=== PATIENT | female | born 1955 | race Caucasian/White ===

== ENCOUNTER 2017-09-13 05:11 | Inpatient (IN) | payer SELFPAY ==
[2017-09-13] MEDS ORDERED: IPRATROPIUM/ALBUTEROL 0.5-2.5 MG/3 ML AMPUL NEB ONE ×2 (05:15→11:00)
--- NOTE | 2017-09-13 05:17 | ER Document Report ---
ED General - General Stated Complaint: SHORTNESS OF BREATH Time Seen by Provider: 09/13/17 05:15 Mode of Arrival: Medic Information source: Patient, Emergency Med Personnel Cannot obtain history due to: Unstable vital signs Notes: 62-year-old female presents in respiratory distress, patient has a history of asthma, has been staying with family member who has cats. Patient has allergy to cats and began wheezing. EMS was called and noted to be satting 83% on room air patient was given breathing treatments 2 Solu-Medrol 125 and brought to the ED patient denies any fevers or chills - HPI Onset: Just prior to arrival Onset/Duration: Sudden Quality of pain: No pain Severity: Severe Pain Level: Denies Associated symptoms: Nonproductive cough, Shortness of breath Exacerbated by: Coughing, Other - cats Relieved by: Denies Similar symptoms previously: Yes Recently seen / treated by doctor: Yes Past Medical History - Social History Smoking Status: Never Smoker Cigarette use (# per day): No Chew tobacco use (# tins/day): No Smoking Education Provided: No Family History: Reviewed & Not Pertinent Review of Systems - Review of Systems Notes: REVIEW OF SYSTEMS: CONSTITUTIONAL : Denies fever, chills, or sweats. Denies recent illness. EENT: Denies eye, ear, throat, or mouth pain or symptoms. Denies nasal or sinus congestion or discharge. Denies throat, tongue, or mouth swelling or difficulty swallowing. CARDIOVASCULAR: Denies chest pain. Denies palpitations or racing or irregular heart beat. Denies ankle edema. RESPIRATORY: Admits to difficulty breathing shortness of breath GASTROINTESTINAL: Denies abdominal pain or distention. Denies nausea, vomiting , or diarrhea. Denies blood in vomitus, stools, or per rectum. Denies black, tarry stools. Denies constipation. GENITOURINARY: Denies difficulty urinating, painful urination, burning, frequency, blood in urine, or discharge. FEMALE GENITOURINARY: Denies vaginal bleeding, heavy or abnormal periods, irregular periods. Denies vaginal discharge or odor. MUSCULOSKELETAL: Denies back or neck pain or stiffness. Denies joint pain or swelling. SKIN: Denies rash, lesions or sores. HEMATOLOGIC : Denies easy bruising or bleeding. LYMPHATIC: Denies swollen, enlarged glands. NEUROLOGICAL: Denies confusion or altered mental status. Denies passing out or loss of consciousness. Denies dizziness or lightheadedness. Denies headache. Denies weakness or paralysis or loss of use of either side. Denies problems with gait or speech. Denies sensory loss, numbness, or tingling. Denies seizures. PSYCHIATRIC: Denies anxiety or stress. Denies depression, suicidal ideation, or homicidal ideation. ALL OTHER SYSTEMS REVIEWED AND NEGATIVE. PHYSICAL EXAMINATION: GENERAL: Well-appearing, well-nourished and in significant respiratory distress HEAD: Atraumatic, normocephalic. EYES: Pupils equal round and reactive to light, extraocular movements intact, conjunctiva are normal. ENT: Nares patent, oropharynx clear without exudates. Moist mucous membranes. NECK: Normal range of motion, supple without lymphadenopathy LUNGS: Decreased breath sounds all throughout supraclavicular retractions HEART: Tachycardic ABDOMEN: Soft, nontender, nondistended abdomen. No guarding, no rebound. No masses appreciated. Female : deferred Musculoskeletal: Normal range of motion, no pitting or edema. No cyanosis. NEUROLOGICAL: Cranial nerves grossly intact. Normal speech, normal gait. Normal sensory, motor exams PSYCH: Normal mood, normal affect. SKIN: Warm, Dry, normal turgor, no rashes or lesions noted. Dictation was performed using [employer] voice recognition software Physical Exam - Vital signs Vitals: Resp Pulse Ox 31 H 88 L 09/13/17 05:14 09/13/17 05:14 Course - Re-evaluation Re-evalutation: 09/13/17 05:17 For the DuoNeb magnesium have been ordered respiratory has been called for BiPAP 09/13/17 06:07 Patient's O2 sat when taken off oxygen goes down to 80% still at rest, BiPAP was placed she has been satting well since retractions have resolved, chest x- ray is more consistent with reactive airway disease which I believe is secondary to the asthma exacerbation, she has never been intubated before and is resting comfortably at this time after magnesium had been given. I did speak with hospitalist and will admit to their service - Vital Signs Vital signs: Temp Pulse Resp BP Pulse Ox 143 H 31 H 129/71 H 97 09/13/17 05:15 09/13/17 05:14 09/13/17 05:35 09/13/17 05:35 - Laboratory Result Diagrams: 09/13/17 05:20 09/13/17 05:20 Laboratory results interpreted by me: 09/13/17 05:20 WBC 11.4 H RDW 14.6 H - Diagnostic Test Radiology reviewed: Image reviewed, Reports reviewed - Reactive airway - EKG Interpretation by Me EKG shows normal: Sinus rhythm, [place], Intervals, QRS Complexes Critical Care Note - Critical Care Note Total time excluding time spent on procedures (mins): 37 Comments: 37 minutes of critical care time spent in direct contact evaluating and reevaluating the patient, treating symptoms, reviewing labs and studies and speaking with family and consultants excluding any procedures Discharge - Discharge Clinical Impression: Tachycardia, Respiratory distress Exacerbation of asthma Qualifiers: Asthma severity: severe Asthma persistence: persistent Qualified Code(s): J45.51 - Severe persistent asthma with (acute) exacerbation Condition: Fair Disposition: ADMITTED INPATIENT Admitting Provider: Hospitalist Unit Admitted: [facility]
[2017-09-13] MEDS: MAGNESIUM SULFATE/D5W 1 GM/100 ML RTUPB IV SCH (05:20)
[2017-09-13 05:48] LABS: ABSOLUTE BASOPHILS # (AUTO) 0.1 10^3/uL (0.0-0.2); ABSOLUTE EOSINOPHILS # (AUTO) 0.1 10^3/uL (0.0-0.6); ABSOLUTE LYMPHOCYTES (AUTO) 2.6 10^3/uL (0.5-4.7); ABSOLUTE MONOCYTES (AUTO) 0.7 10^3/uL (0.1-1.4); BASOPHILS % (AUTO) 0.7 % (0-2); EOSINOPHILS % (AUTO) 0.9 % (0-6); HEMATOCRIT 37.3 % (36.0-47.0); HEMOGLOBIN 12.2 g/dL (12.0-15.5); LYMPHOCYTES % (AUTO) 22.5 % (13-45); MEAN CORPUSCULAR HEMOGLOBIN 28.9 pg (27.0-33.4); MEAN CORPUSCULAR HGB CONC 32.7 g/dL (32.0-36.0); MEAN CORPUSCULAR VOLUME 89 fl (80-97); MONOCYTES % (AUTO) 5.7 % (3-13); PLATELET COUNT 420 10^3/uL (150-450); RED BLOOD COUNT 4.21 10^6/uL (3.72-5.28); RED CELL DISTRIBUTION WIDTH 14.6 % (11.5-14.0); SEGMENTED NEUTROPHILS % (AUTO) 70.2 % (42-78); TOTAL CELLS COUNTED % (AUTO) 100 %; WHITE BLOOD COUNT 11.4 10^3/uL (4.0-10.5)
--- NOTE | 2017-09-13 05:52 | RADIOLOGY REPORT (SQ) ---
EXAM DESCRIPTION: CHEST SINGLE VIEW CLINICAL HISTORY: resp distress, asthma exacerbation COMPARISON: None. FINDINGS: Single frontal view of the chest. Atherosclerotic calcification of the aortic arch. Heart is not enlarged. Diffuse bilateral interstitial opacities and peribronchial interstitial thickening. No pneumothorax or pleural effusion. No displaced rib fractures identified. Upper abdominal soft tissues are unremarkable. IMPRESSION: 1. Bronchial interstitial thickening with bilateral interstitial opacities. This could be seen with reactive airways disease however acute interstitial edema or interstitial pneumonia could produce a similar appearance.
[2017-09-13 06:10] LABS: ALANINE AMINOTRANSFERASE 26 U/L (9-52); ALKALINE PHOSPHATASE 107 U/L (38-126); ANION GAP 11 (5-19); ASPARTATE AMINO TRANSFERASE 18 U/L (14-36); BILIRUBIN,DIRECT 0.4 mg/dL (0.0-0.4); BILIRUBIN,TOTAL 0.4 mg/dL (0.2-1.3); BLOOD UREA NITROGEN 15 mg/dL (7-20); CALCIUM 9.4 mg/dL (8.4-10.2); CARBON DIOXIDE 24 mmol/L (22-30); CHLORIDE 106 mmol/L (98-107); CREATINE KINASE 152 U/L (30-135); GLUCOSE 316 mg/dL (75-110); POTASSIUM 4.5 mmol/L (3.6-5.0); TOTAL PROTEIN 6.8 g/dL (6.3-8.2)
[2017-09-13 06:15] LABS: CREATINE KINASE MB 1.68 ng/mL (<4.55); NT PRO BNP 750 pg/mL (5-900)
[2017-09-13 06:24] LABS: TROPONIN I < 0.012 ng/mL
[2017-09-13] MEDS ORDERED: DEXTROSE 50%-WATER 25 GM/50 ML DISP.SYRIN IV PRN ×2 (07:22)
[2017-09-13] MEDS ORDERED: ACETAMINOPHEN 325 MG TABLET PO PRN (07:22)
[2017-09-13] MEDS ORDERED: IPRATROPIUM/ALBUTEROL 0.5-2.5 MG/3 ML AMPUL NEB PRN (07:22)
[2017-09-13] MEDS ORDERED: DEXTROSE 40% GEL 15 GM TUBE PO PRN ×2 (07:22)
[2017-09-13] MEDS ORDERED: GLUCAGON,HUMAN RECOMB 1 MG INJ IM PRN (07:22)
[2017-09-13 07:23] LABS: APPEARANCE,URINE SLIGHTLY-CLOUDY; BILIRUBIN,URINE NEGATIVE (NEGATIVE); COLOR,URINE YELLOW; GLUCOSE, URINE >=500 mg/dL (NEGATIVE); KETONES,URINE NEGATIVE (NEGATIVE); LEUKOCYTE ESTERASE,URINE NEGATIVE (NEGATIVE); NITRITE,URINE NEGATIVE (NEGATIVE); PROTEIN,URINE 30 mg/dL (NEGATIVE); URINE SPECIFIC GRAVITY 1.018; UROBILINOGEN,URINE NEGATIVE mg/dL (<2.0)
[2017-09-13] MEDS ORDERED: IPRATROPIUM/ALBUTEROL 0.5-2.5 MG/3 ML AMPUL NEB SCH (08:00)
[2017-09-13] MEDS ORDERED: CHLORPHENIRAMINE MALEATE 4 MG TABLET PO ONE (10:00)
[2017-09-13] MEDS ORDERED: HYDROCHLOROTHIAZIDE 25 MG TABLET PO ONE (10:00)
[2017-09-13] MEDS ORDERED: (PENDING PHARMACY ID) (Olmesartan Medoxomil [Benicar] 20 MG) PO SCH (10:00)
[2017-09-13] MEDS ORDERED: (PENDING PHARMACY ID) (Diclofenac Sodium [Voltaren] 75 MG) PO SCH (10:00)
[2017-09-13] MEDS ORDERED: NICOTINE 7 MG/24 HR PATCH.TD24 TD PRN (10:06)
[2017-09-13] MEDS: LEVOFLOXACIN 750 MG/D5W RTU 750 MG/150 ML RTUPB IV SCH (10:43)
[2017-09-13] MEDS: FLUTICASONE NASAL SPRAY 50 MCG/SPRY 120 SPRAY/16 GM NASL SCH ×2 (10:44→22:21)
--- NOTE | 2017-09-13 10:47 | EKG REPORT ---
SEVERITY:- ABNORMAL ECG - SINUS TACHYCARDIA MULTIFORM VENTRICULAR PREMATURE COMPLEXES NONSPECIFIC T ABNORMALITIES, LATERAL LEADS : Confirmed by: Kunal Rosa 13-Sep-2017 10:46:25
[2017-09-13] MEDS: INSULIN LISPRO 100 UNIT/ML 3 ML VIAL SUBCUT PRN ×2 (11:45→16:34)
[2017-09-13] MEDS: HEPARIN SOD (PORCINE) 5,000 UNIT/ML 1 ML SYRINGE SUBCUT SCH ×2 (14:14→22:20)
[2017-09-13] MEDS: IPRATROPIUM/ALBUTEROL 0.5-2.5 MG/3 ML AMPUL NEB SCH ×2 (14:32→19:40)
[2017-09-13] MEDS ORDERED: CHLORPHENIRAMINE MALEATE 4 MG TABLET PO PRN (15:45)
--- NOTE | 2017-09-13 18:37 | PDOC H&P ---
History of Present Illness Admission Date/PCP: 09/13/17 06:29 Patient complains of: Shortness of breath and cough History of Present Illness: KHUSHBOO ELIAS is a 62 year old female with past medical history of diabetes, hypertension, COPD and tobacco dependence. Patient complains of several days of rhinorrhea, shortness of breath, wheeze nonproductive cough. Symptoms not significantly improved by outpatient medications in the emergency room she is found to be hypoxic in the 80s and tachycardic in the 140s she is referred to the hospitalist for observation. She denies chest pain nausea vomiting palpitations. Denies fever or any new medications. She does have mild leukocytosis but an unremarkable chest x-ray. Past Medical History Cardiac Medical History: Reports: Hypertension Pulmonary Medical History: Reports: Chronic Obstructive Pulmonary Disease (COPD) Endocrine Medical History: Reports: Diabetes Mellitus Type 1 Social History Information Source: Patient Lives with: Alone Smoking Status: Current Every Day Smoker Frequency of Alcohol Use: Rare - Advance Directive Resuscitation Status: Full Code Family History Family History: CAD, COPD, Other - Alcoholism Parental Family History Reviewed: Yes Children Family History Reviewed: Yes Sibling(s) Family History Reviewed.: Yes Medication/Allergy Home Medications: Albuterol Sulfate [Proventil Hfa] 2 puff IH Q12 09/13/17 Diclofenac Sodium [Voltaren] 75 mg PO BID 09/13/17 Fluticasone/Salmeterol [Advair 250-50 Diskus 14 Dose/Diskus] 1 puff IH Q12 09/13 Hydrochlorothiazide [Hydrodiuril 25 mg Tablet] 25 mg PO QAM 09/13/17 Insulin Aspart [Novolog Flexpen] 0 unit SUBCUT .SLD SCALE 09/13/17 Insulin Detemir [Levemir Flextouch] 95 unit SQ QHS 09/13/17 Olmesartan Medoxomil [Benicar] 20 mg PO DAILY 09/13/17 Allergies/Adverse Reactions: No Known Allergies Allergy (Unverified 09/13/17 06:35) Review of Systems Constitutional: PRESENT: as per HPI, fatigue, headache(s), weakness Eyes: ABSENT: visual disturbances Ears: ABSENT: hearing changes Nose, Mouth, and Throat: PRESENT: as per HPI, other - Maxillary sinus pain and rhinorrhea Cardiovascular: ABSENT: chest pain, dyspnea on exertion, edema, orthropnea, palpitations Respiratory: PRESENT: as per HPI, cough, dyspnea. ABSENT: hemoptysis, sputum Gastrointestinal: ABSENT: abdominal pain, constipation, diarrhea, hematemesis, hematochezia, nausea, vomiting Genitourinary: ABSENT: dysuria, hematuria Musculoskeletal: ABSENT: joint swelling Integumentary: ABSENT: rash, wounds Neurological: ABSENT: abnormal gait, abnormal speech, confusion, dizziness, focal weakness, syncope Psychiatric: ABSENT: anxiety, depression, homidical ideation, suicidal ideation Endocrine: ABSENT: cold intolerance, heat intolerance, polydipsia, polyuria Hematologic/Lymphatic: ABSENT: easy bleeding, easy bruising Physical Exam Vital Signs: Temp Pulse Resp BP Pulse Ox 98.6 F 115 H 15 155/76 H 97 09/13/17 09:01 09/13/17 14:32 09/13/17 17:01 09/13/17 17:01 09/13/17 17:01 General appearance: PRESENT: cooperative, disheveled, mild distress Head exam: PRESENT: atraumatic, normocephalic Eye exam: PRESENT: conjunctiva pink, EOMI, PERRLA. ABSENT: scleral icterus Ear exam: PRESENT: normal external ear exam Mouth exam: PRESENT: moist, tongue midline Neck exam: ABSENT: carotid bruit, JVD, lymphadenopathy, thyromegaly Respiratory exam: PRESENT: crackles, prolonged expiratory phas, rales, retraction, symmetrical, tachypnea. ABSENT: rhonchi, wheezes Cardiovascular exam: PRESENT: +S1, +S2, tachycardia Pulses: PRESENT: normal dorsalis pedis pul Vascular exam: PRESENT: normal capillary refill GI/Abdominal exam: PRESENT: normal bowel sounds, soft. ABSENT: distended, guarding, mass, organolmegaly, rebound, tenderness Rectal exam: PRESENT: deferred Extremities exam: PRESENT: full ROM. ABSENT: calf tenderness, clubbing, pedal edema Neurological exam: PRESENT: alert, awake, oriented to person, oriented to place , oriented to time, oriented to situation, CN II-XII grossly intact. ABSENT: motor sensory deficit Psychiatric exam: PRESENT: appropriate affect, normal mood. ABSENT: homicidal ideation, suicidal ideation Skin exam: PRESENT: dry, intact, warm. ABSENT: cyanosis, rash Results Impressions: Chest X-Ray 09/13/17 05:15 IMPRESSION: 1. Bronchial interstitial thickening with bilateral interstitial opacities. This could be seen with reactive airways disease however acute interstitial edema or interstitial pneumonia could produce a similar appearance. Assessment & Plan - Diagnosis (1) Asthma exacerbation in COPD Is this a current diagnosis for this admission?: Yes Plan: Complicated by allergic sinusitis, acute bronchitis and tobacco. Albuterol and Atrovent, flutter valve, incentive spirometry and tobacco avoidance (2) Acute bronchitis Is this a current diagnosis for this admission?: Yes Plan: Trial empiric antibiotics. Consider prednisone. (3) Allergic sinusitis Is this a current diagnosis for this admission?: Yes Plan: Chlorpheniramine and Flonase (4) Tobacco abuse Is this a current diagnosis for this admission?: Yes Plan: Tobacco Dependence patient received tobacco cessation counseling and offered nicotine replacement options (5) Tachycardia Is this a current diagnosis for this admission?: Yes Plan: Trial diltiazem during acute flare given high risk of conversion to A. fib. - Time Time Spent: 50 to 70 Minutes
[2017-09-13] MEDS: DICLOFENAC SODIUM 25 MG TABLET.DR PO SCH (22:16)
[2017-09-13] MEDS: DILTIAZEM HCL 120 MG CAP.SR.24H PO SCH (22:17)
[2017-09-13] MEDS ORDERED: INFLUENZA ADLT QUAD (36MOS+) 2017-18 VAC 0.5 ML SYR IM PRN (23:11)
[2017-09-13] MEDS ORDERED: INSULIN DETEMIR 100 UNIT/ML 3 ML PEN SUBCUT ONE (23:45)
[2017-09-14] MEDS: INSULIN LISPRO 100 UNIT/ML 3 ML VIAL SUBCUT PRN ×4 (00:28→18:12)
[2017-09-14] MEDS: GUAIFENESIN SYRP 200 MG/10 ML UDC PO PRN (00:28)
[2017-09-14] MEDS: METHYLPREDNISOLONE INJ 40 MG/1 ML SDV IV SCH ×3 (00:28→22:16)
[2017-09-14] MEDS ORDERED: INSULIN DETEMIR 100 UNIT/ML 3 ML PEN SUBCUT ONE (01:01)
[2017-09-14] MEDS: IPRATROPIUM/ALBUTEROL 0.5-2.5 MG/3 ML AMPUL NEB SCH ×4 (02:09→19:57)
[2017-09-14] MEDS: DILTIAZEM HCL 120 MG CAP.SR.24H PO SCH ×2 (05:19→18:12)
[2017-09-14] MEDS: HEPARIN SOD (PORCINE) 5,000 UNIT/ML 1 ML SYRINGE SUBCUT SCH ×3 (05:19→22:16)
[2017-09-14 05:53] LABS: ABSOLUTE LYMPHOCYTES (AUTO) 0.9 10^3/uL (0.5-4.7); ABSOLUTE MONOCYTES (AUTO) 0.2 10^3/uL (0.1-1.4); BASOPHILS % (AUTO) 0.2 % (0-2); HEMATOCRIT 35.1 % (36.0-47.0); HEMOGLOBIN 11.5 g/dL (12.0-15.5); LYMPHOCYTES % (AUTO) 6.5 % (13-45); MEAN CORPUSCULAR HEMOGLOBIN 28.7 pg (27.0-33.4); MEAN CORPUSCULAR HGB CONC 32.7 g/dL (32.0-36.0); MEAN CORPUSCULAR VOLUME 88 fl (80-97); MONOCYTES % (AUTO) 1.3 % (3-13); PLATELET COUNT 388 10^3/uL (150-450); RED CELL DISTRIBUTION WIDTH 14.7 % (11.5-14.0); TOTAL CELLS COUNTED % (AUTO) 100 %; WHITE BLOOD COUNT 14.1 10^3/uL (4.0-10.5)
--- NOTE | 2017-09-14 06:42 | Physician Advisory Note ---
Physician Advisor ProgressNote .: Pursuant to the plan for [facility], I have reviewed the medical record for this patient. Physician Advisor Statement: Please consider documenting, if you agree: 1. "Acute Hypoxemic Respiratory FAilure" - H&P already nicely documents the O2 sats in 80s , retractions, etc. Needed Bipap in ED. Status: Pt w/persistent tachycardia, recurrent tachypnea throughout the day . Last nursing assessment indicates continued HALL, wheezing. If attending agrees that this pt is not yet safe for d/c today, appropriate to change status to Inpatient. Thanks! CK
[2017-09-14] MEDS: HYDROCHLOROTHIAZIDE 25 MG TABLET PO SCH (08:11)
[2017-09-14] MEDS ORDERED: METHYLPREDNISOLONE INJ 125 MG/2 ML SDV IV SCH ×2 (10:00→22:00)
[2017-09-14] MEDS: DICLOFENAC SODIUM 25 MG TABLET.DR PO SCH ×2 (11:03→22:16)
[2017-09-14] MEDS: FLUTICASONE NASAL SPRAY 50 MCG/SPRY 120 SPRAY/16 GM NASL SCH ×2 (11:03→22:16)
[2017-09-14] MEDS: LEVOFLOXACIN 750 MG/D5W RTU 750 MG/150 ML RTUPB IV SCH (11:04)
[2017-09-14] MEDS: LOSARTAN POTASSIUM 50 MG TABLET PO SCH (11:04)
[2017-09-14] MEDS: NICOTINE 14 MG/24 HR PATCH.TD24 TD SCH (11:05)
--- NOTE | 2017-09-14 16:28 | PDOC PROGRESS REPORT ---
Subjective Progress Note for:: 09/14/17 Subjective:: Patient is a 62-year-old female with a past medical history of diabetes, hypertension, COPD and tobacco dependence who was admitted on 09/13/17 for acute respiratory failure with hypoxia secondary to COPD exacerbation. Patient seen on morning rounds. She is found sitting up to the edge of her bed on supplemental oxygen at 2 L/min having just finished her breakfast. She is not home O2 dependent. She reports that her breathing has improved significantly and she no longer feels dyspneic while at rest. However, she does become significantly short of breath when ambulatory 10-12 feet to the restroom and takes several minutes to recover after returning to the bed. She also reports increased sputum production today. She denies fever, chills, chest pain, palpitations, orthopnea, abdominal pain, nausea vomiting diarrhea. She does request the addition of a nicotine patch and to speak with social security specialist. Otherwise, she has no new questions or concerns. Reason For Visit: ACUTE RESPIRATORY FAILURE W/HYPOXIA, COPD Physical Exam Vital Signs: Temp Pulse Resp BP Pulse Ox 98.9 F 108 H 18 171/76 H 96 09/14/17 10:59 09/14/17 14:25 09/14/17 14:25 09/14/17 10:59 09/14/17 14:25 General appearance: PRESENT: no acute distress, well-developed, well-nourished, other - Overweight Head exam: PRESENT: atraumatic, normocephalic Eye exam: PRESENT: conjunctiva pink, EOMI, PERRLA. ABSENT: scleral icterus Ear exam: PRESENT: normal external ear exam Mouth exam: PRESENT: moist, tongue midline Teeth exam: PRESENT: poor dentation Neck exam: ABSENT: carotid bruit, JVD, lymphadenopathy, thyromegaly Respiratory exam: PRESENT: prolonged expiratory phas, rhonchi, symmetrical, unlabored, wheezes - Expiratory wheezing, especially to the left lower lobe, other - Omental oxygen at 2 L/min. ABSENT: crackles, rales Cardiovascular exam: PRESENT: RRR, +S1, +S2. ABSENT: diastolic murmur, rubs, systolic murmur, tachycardia Pulses: PRESENT: normal dorsalis pedis pul Vascular exam: PRESENT: normal capillary refill GI/Abdominal exam: PRESENT: normal bowel sounds, soft. ABSENT: distended, guarding, mass, organolmegaly, rebound, tenderness Rectal exam: PRESENT: deferred Extremities exam: PRESENT: full ROM. ABSENT: calf tenderness, clubbing, pedal edema Neurological exam: PRESENT: alert, awake, oriented to person, oriented to place , oriented to time, oriented to situation, CN II-XII grossly intact. ABSENT: motor sensory deficit Psychiatric exam: PRESENT: agitated, appropriate affect, normal mood. ABSENT: homicidal ideation, suicidal ideation Skin exam: PRESENT: dry, intact, warm. ABSENT: cyanosis, rash Results Impressions: Chest X-Ray 09/13/17 05:15 IMPRESSION: 1. Bronchial interstitial thickening with bilateral interstitial opacities. This could be seen with reactive airways disease however acute interstitial edema or interstitial pneumonia could produce a similar appearance. Assessment & Plan - Diagnosis (1) Acute respiratory failure with hypoxia Is this a current diagnosis for this admission?: Yes Plan: Slight improvement. Secondary to COPD exacerbation; the patient was noted to be hypoxic and the 80s and tachycardic at 140 upon arrival to the emergency department. The patient is admitted to the telemetry floor. Supplemental oxygen as needed to maintain oxygen saturations greater than 88% Continue scheduled and as needed nebulizer treatments. Continue chlorpheniramine every 6 hours as needed We will resume Mucinex twice daily. We will continue IV Solu-Medrol 40 mg every 8 hours. Incentive spirometry and flutter valve to bedside. (2) COPD exacerbation Plan: As above. (3) Acute bronchitis Is this a current diagnosis for this admission?: Yes Plan: Blood cultures: No growth in 24 hours. Plan as above. The patient has empirically been placed on Levaquin. (4) Allergic sinusitis Is this a current diagnosis for this admission?: Yes Plan: Continue Flonase. Continue chlorphentermine as needed. (5) Tachycardia Is this a current diagnosis for this admission?: Yes Plan: Likely secondary to acute respiratory failure with hypoxia. The patient has been placed on diltiazem with subsequent decrease in heart rate , however, the patient does continue to be mildly tachycardic averaging 100-110. (6) Diabetes Qualifiers: Diabetes mellitus type: type 2 Diabetes mellitus retirement insulin use: with 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 use Is this a current diagnosis for this admission?: Yes Plan: Consistent carb diet. Accu-Cheks before meals and at bedtime with Humalog for sliding scale coverage. We will continue Levemir 52 units nightly. Of note, this is a decrease from the patient's reported use of 95 units nightly. This raises concern of dietary or medication noncompliance leading to her the necessary dosage. We will ask the music educator and registered dietitian to meet with the patient. (7) Tobacco abuse Is this a current diagnosis for this admission?: Yes Plan: Smoking cessation is strongly encouraged. She is provided a NicoDerm patch. - Time Time Spent with patient: 35 or more minutes Medications reviewed and adjusted accordingly: Yes Anticipated discharge: Home - Inpatient Certification Based on my medical assessment, after consideration of the patient's comorbidities, presenting symptoms, or acuity I expect that the services needed warrant INPATIENT care.: Yes I certify that my determination is in accordance with my understanding of Medicare's requirements for reasonable and necessary INPATIENT services [42 CFR 412.3e].: Yes Medical Necessity: Failure to Improve With Outpatient Therapy, Need Close Monitoring Due to Risk of Patient Decompensation, Need For Continuous Telemetry Monitoring, Need for Nebulizer Therapy and Monitoring of Response
[2017-09-14] MEDS ORDERED: INSULIN DETEMIR 100 UNIT/ML 3 ML PEN SUBCUT SCH (22:00)
[2017-09-14] MEDS: GUAIFENESIN 600 MG TABLET.SA PO SCH (22:16)
[2017-09-14] MEDS: INSULIN DETEMIR 100 UNIT/ML 3 ML PEN SUBCUT SCH (22:17)
[2017-09-15] MEDS: IPRATROPIUM/ALBUTEROL 0.5-2.5 MG/3 ML AMPUL NEB SCH ×4 (01:19→19:49)
[2017-09-15 05:09] LABS: HEMATOCRIT 34.3 % (36.0-47.0); HEMOGLOBIN 11.3 g/dL (12.0-15.5); MEAN CORPUSCULAR HEMOGLOBIN 28.9 pg (27.0-33.4); MEAN CORPUSCULAR VOLUME 88 fl (80-97); PLATELET COUNT 395 10^3/uL (150-450); RED BLOOD COUNT 3.92 10^6/uL (3.72-5.28); RED CELL DISTRIBUTION WIDTH 14.7 % (11.5-14.0)
[2017-09-15 05:32] LABS: ANION GAP 11 (5-19); BLOOD UREA NITROGEN 38 mg/dL (7-20); CALCIUM 10.3 mg/dL (8.4-10.2); CARBON DIOXIDE 25 mmol/L (22-30); CHLORIDE 97 mmol/L (98-107); GLUCOSE 353 mg/dL (75-110); POTASSIUM 4.7 mmol/L (3.6-5.0); SODIUM 132.8 mmol/L (137-145)
[2017-09-15] MEDS: HEPARIN SOD (PORCINE) 5,000 UNIT/ML 1 ML SYRINGE SUBCUT SCH ×3 (06:21→22:24)
[2017-09-15] MEDS: DILTIAZEM HCL 120 MG CAP.SR.24H PO SCH ×2 (06:21→17:27)
[2017-09-15] MEDS: METHYLPREDNISOLONE INJ 40 MG/1 ML SDV IV SCH ×2 (06:21→13:13)
[2017-09-15] MEDS: INSULIN LISPRO 100 UNIT/ML 3 ML VIAL SUBCUT PRN ×4 (06:52→22:23)
[2017-09-15] MEDS: HYDROCHLOROTHIAZIDE 25 MG TABLET PO SCH (08:23)
[2017-09-15] MEDS: NICOTINE 14 MG/24 HR PATCH.TD24 TD SCH (09:58)
[2017-09-15] MEDS: DICLOFENAC SODIUM 25 MG TABLET.DR PO SCH ×2 (09:58→22:18)
[2017-09-15] MEDS: LOSARTAN POTASSIUM 50 MG TABLET PO SCH (09:58)
[2017-09-15] MEDS: GUAIFENESIN 600 MG TABLET.SA PO SCH ×2 (09:58→22:20)
[2017-09-15] MEDS: FLUTICASONE NASAL SPRAY 50 MCG/SPRY 120 SPRAY/16 GM NASL SCH ×2 (09:58→22:18)
[2017-09-15] MEDS: LEVOFLOXACIN 750 MG/D5W RTU 750 MG/150 ML RTUPB IV SCH (09:58)
[2017-09-15] MEDS: GUAIFENESIN SYRP 200 MG/10 ML UDC PO PRN (13:13)
--- NOTE | 2017-09-15 14:00 | PDOC PROGRESS REPORT ---
Subjective Progress Note for:: 09/15/17 Subjective:: Patient is a 62-year-old female with a past medical history of diabetes, hypertension, COPD and tobacco dependence who was admitted on 09/13/17 for acute respiratory failure with hypoxia secondary to COPD exacerbation. Patient seen on rounds. She is found sitting up to the edge of her bed on room air having just finished her lunch. She is not home O2 dependent. She reports that her breathing has improved significantly and she no longer feels dyspneic while at rest. She has been ambulatory in the hallway without issue. She does complain of a productive cough as well as chest wall pain with coughing and deep breathing. She denies fever, chills, chest pain, palpitations, orthopnea, abdominal pain, nausea vomiting diarrhea. She has no new questions or concerns. Reason For Visit: ACUTE RESPIRATORY FAILURE W/HYPOXIA, COPD Physical Exam Vital Signs: Temp Pulse Resp BP Pulse Ox 98.0 F 96 18 112/62 98 09/15/17 11:38 09/15/17 11:38 09/15/17 11:38 09/15/17 11:38 09/15/17 11:38 Intake & Output 09/14/17 09/15/17 09/16/17 06:59 06:59 06:59 Intake Total 2506 Output Total 5400 Balance -2894 Weight 73.2 kg General appearance: PRESENT: no acute distress, well-developed, well-nourished, other - Overweight Head exam: PRESENT: atraumatic, normocephalic Eye exam: PRESENT: conjunctiva pink, EOMI, PERRLA. ABSENT: scleral icterus Ear exam: PRESENT: normal external ear exam Mouth exam: PRESENT: moist, tongue midline Neck exam: ABSENT: carotid bruit, JVD, lymphadenopathy, thyromegaly Respiratory exam: PRESENT: clear to auscultation becca, symmetrical, unlabored. ABSENT: rales, rhonchi, wheezes Cardiovascular exam: PRESENT: RRR, +S1, +S2. ABSENT: diastolic murmur, rubs, systolic murmur Pulses: PRESENT: normal dorsalis pedis pul Vascular exam: PRESENT: normal capillary refill GI/Abdominal exam: PRESENT: normal bowel sounds, soft. ABSENT: distended, guarding, mass, organolmegaly, rebound, tenderness Rectal exam: PRESENT: deferred Extremities exam: PRESENT: full ROM. ABSENT: calf tenderness, clubbing, pedal edema Neurological exam: PRESENT: alert, awake, oriented to person, oriented to place , oriented to time, oriented to situation, CN II-XII grossly intact. ABSENT: motor sensory deficit Psychiatric exam: PRESENT: appropriate affect, normal mood. ABSENT: homicidal ideation, suicidal ideation Skin exam: PRESENT: dry, intact, warm. ABSENT: cyanosis, rash Results Laboratory Results: 09/15/17 04:36 09/15/17 04:36 09/15/17 09/15/17 04:36 04:36 WBC 17.0 H RBC 3.92 Hgb 11.3 L Hct 34.3 L MCV 88 MCH 28.9 MCHC 33.0 RDW 14.7 H Plt Count 395 Sodium 132.8 L Potassium 4.7 Chloride 97 L Carbon Dioxide 25 Anion Gap 11 BUN 38 H Creatinine 0.97 Est GFR ( Amer) > 60 Est GFR (Non-Af Amer) 59 L Glucose 353 H Calcium 10.3 H Impressions: Chest X-Ray 09/13/17 05:15 IMPRESSION: 1. Bronchial interstitial thickening with bilateral interstitial opacities. This could be seen with reactive airways disease however acute interstitial edema or interstitial pneumonia could produce a similar appearance. Assessment & Plan - Diagnosis (1) Acute respiratory failure with hypoxia Is this a current diagnosis for this admission?: Yes Plan: Much improved. Secondary to COPD exacerbation; the patient is now maintaining oxygen saturations while on room air. The patient is admitted to the telemetry floor. Supplemental oxygen as needed to maintain oxygen saturations greater than 88% Continue scheduled and as needed nebulizer treatments. Continue chlorpheniramine every 6 hours as needed We will resume Mucinex twice daily. We will transition to prednisone. Incentive spirometry and flutter valve to bedside. Anticipate discharge tomorrow morning if patient tolerates transition to oral medications well. (2) COPD exacerbation Plan: As above. (3) Acute bronchitis Is this a current diagnosis for this admission?: Yes Plan: Blood cultures: No growth in 48 hours. Plan as above. The patient has empirically been placed on Levaquin; transition to p.o. Levaquin today. Today is day 3 of 7. (4) Allergic sinusitis Is this a current diagnosis for this admission?: Yes Plan: Continue Flonase. Continue chlorphentermine as needed. (5) Tachycardia Is this a current diagnosis for this admission?: Yes Plan: Improved. Likely secondary to acute respiratory failure with hypoxia. The patient has been placed on diltiazem. (6) Diabetes Qualifiers: Diabetes mellitus type: type 2 Diabetes mellitus machine long goods helper insulin use: with snf use Is this a current diagnosis for this admission?: Yes Plan: Consistent carb diet. Accu-Cheks before meals and at bedtime with Humalog for sliding scale coverage. We will continue Levemir 52 units nightly. Of note, this is a decrease from the patient's reported use of 95 units nightly. This raises concern of dietary or medication noncompliance leading to her the necessary dosage. We will ask the childbirth educator and registered dietitian to meet with the patient. (7) Tobacco abuse Is this a current diagnosis for this admission?: Yes Plan: Smoking cessation is strongly encouraged. She is provided a NicoDerm patch. - Time Time Spent with patient: 25-34 minutes Smoking Cessation Education: 3 to 10 minutes Medications reviewed and adjusted accordingly: Yes Anticipated discharge: Home Within: within 24 hours
[2017-09-15] MEDS ORDERED: DOCUSATE SODIUM 100 MG CAPSULE PO PRN (16:46)
[2017-09-15] MEDS: PREDNISONE 20 MG TABLET PO SCH (17:27)
[2017-09-15] MEDS: FAMOTIDINE 20 MG TABLET PO SCH (22:19)
[2017-09-15] MEDS: INSULIN DETEMIR 100 UNIT/ML 3 ML PEN SUBCUT SCH (22:23)
[2017-09-15] MEDS: MAG HYDROX/AL HYDROX/SIMETH SUSP 30 ML UDCUP PO PRN (22:26)
[2017-09-16] MEDS: IPRATROPIUM/ALBUTEROL 0.5-2.5 MG/3 ML AMPUL NEB SCH ×3 (02:30→13:51)
[2017-09-16] MEDS: HEPARIN SOD (PORCINE) 5,000 UNIT/ML 1 ML SYRINGE SUBCUT SCH ×2 (05:34→13:46)
[2017-09-16] MEDS: DILTIAZEM HCL 120 MG CAP.SR.24H PO SCH (05:34)
[2017-09-16] MEDS: MAG HYDROX/AL HYDROX/SIMETH SUSP 30 ML UDCUP PO PRN (05:34)
[2017-09-16 05:47] LABS: ABSOLUTE LYMPHOCYTES (AUTO) 0.8 10^3/uL (0.5-4.7); ABSOLUTE MONOCYTES (AUTO) 0.6 10^3/uL (0.1-1.4); ABSOLUTE NEUT (AUTO) 13.5 10^3/uL (1.7-8.2); BASOPHILS % (AUTO) 0.3 % (0-2); HEMOGLOBIN 11.4 g/dL (12.0-15.5); LYMPHOCYTES % (AUTO) 5.6 % (13-45); MEAN CORPUSCULAR HEMOGLOBIN 28.7 pg (27.0-33.4); MEAN CORPUSCULAR HGB CONC 32.6 g/dL (32.0-36.0); MEAN CORPUSCULAR VOLUME 88 fl (80-97); MONOCYTES % (AUTO) 3.9 % (3-13); PLATELET COUNT 346 10^3/uL (150-450); RED BLOOD COUNT 3.97 10^6/uL (3.72-5.28); RED CELL DISTRIBUTION WIDTH 14.4 % (11.5-14.0); SEGMENTED NEUTROPHILS % (AUTO) 90.2 % (42-78); TOTAL CELLS COUNTED % (AUTO) 100 %; WHITE BLOOD COUNT 14.9 10^3/uL (4.0-10.5)
[2017-09-16 06:06] LABS: ANION GAP 12 (5-19); BLOOD UREA NITROGEN 44 mg/dL (7-20); CALCIUM 9.9 mg/dL (8.4-10.2); CARBON DIOXIDE 27 mmol/L (22-30); CHLORIDE 94 mmol/L (98-107); GLUCOSE 286 mg/dL (75-110); POTASSIUM 4.3 mmol/L (3.6-5.0); SODIUM 133.3 mmol/L (137-145)
[2017-09-16] MEDS: HYDROCHLOROTHIAZIDE 25 MG TABLET PO SCH (08:26)
[2017-09-16] MEDS: INSULIN LISPRO 100 UNIT/ML 3 ML VIAL SUBCUT PRN ×2 (08:27→13:17)
[2017-09-16] MEDS ORDERED: NORMAL SALINE 1000 ML 500 ML IV ONE (09:30)
[2017-09-16] MEDS ORDERED: LEVOFLOXACIN 750 MG TABLET PO SCH (10:00)
[2017-09-16] MEDS: DICLOFENAC SODIUM 25 MG TABLET.DR PO SCH (10:38)
[2017-09-16] MEDS: FAMOTIDINE 20 MG TABLET PO SCH (10:40)
[2017-09-16] MEDS: FLUTICASONE NASAL SPRAY 50 MCG/SPRY 120 SPRAY/16 GM NASL SCH (10:41)
[2017-09-16] MEDS: GUAIFENESIN 600 MG TABLET.SA PO SCH (10:42)
[2017-09-16] MEDS: LOSARTAN POTASSIUM 50 MG TABLET PO SCH (10:43)
[2017-09-16] MEDS: PREDNISONE 20 MG TABLET PO SCH (10:44)
[2017-09-16] MEDS: NICOTINE 14 MG/24 HR PATCH.TD24 TD SCH (10:44)
[2017-09-16 14:14] VITALS: BP 144/72
--- NOTE | 2017-09-16 16:12 | PDOC DISCHARGE SUMMARY ---
General - Admit/Disc Date/PCP Admission Date/Primary Care Provider: 09/14/17 09:18 Discharge Date: 09/16/17 - Discharge Diagnosis (1) Acute respiratory failure with hypoxia Is this a current diagnosis for this admission?: Yes (3) Acute bronchitis Is this a current diagnosis for this admission?: Yes (4) Allergic sinusitis Is this a current diagnosis for this admission?: Yes (5) Tachycardia Is this a current diagnosis for this admission?: Yes (6) Diabetes Is this a current diagnosis for this admission?: Yes (7) Tobacco abuse Is this a current diagnosis for this admission?: Yes - Additional Information Resuscitation Status: Full Code Discharge Diet: Diabetic Discharge Activity: Activity As Tolerated, Balance Activity w/Rest, Slowly Increase Activity Prescriptions: Diltiazem HCl [Cardizem Cd 120 mg Capsule] 120 mg PO Q12A #60 cap.sr.24h Famotidine [Pepcid 20 mg Tablet] 20 mg PO Q12 #60 tablet Guaifenesin [Mucinex Sr 600 mg Tablet.sa] 600 mg PO Q12 #30 tablet.sa Levofloxacin [Levaquin 750 mg Tablet] 750 mg PO DAILY #3 tablet Nicotine [Nicoderm 14 mg/24 Hr Transdermal Patch] 1 each TD DAILY #14 patch.td24 Prednisone [Deltasone 20 mg Tablet] 40 mg PO DAILY #8 tablet Home Medications: Albuterol Sulfate [Proventil Hfa] 2 puff IH Q12 09/13/17 Diclofenac Sodium [Voltaren] 75 mg PO BID 09/13/17 Fluticasone/Salmeterol [Advair 250-50 Diskus 14 Dose/Diskus] 1 puff IH Q12 09/13 Hydrochlorothiazide [Hydrodiuril 25 mg Tablet] 25 mg PO QAM 09/13/17 Insulin Aspart [Novolog Flexpen] 0 unit SUBCUT .SLD SCALE 09/13/17 Insulin Detemir [Levemir Flextouch] 95 unit SQ QHS 09/13/17 Olmesartan Medoxomil [Benicar] 20 mg PO DAILY 09/13/17 Acetaminophen [Tylenol 325 mg Tablet] 650 mg PO Q4HP PRN tablet 09/16/17 Diltiazem HCl [Cardizem Cd 120 mg Capsule] 120 mg PO Q12A #60 cap.sr.24h 03/14/ 18 Famotidine [Pepcid 20 mg Tablet] 20 mg PO Q12 #60 tablet 09/16/17 Guaifenesin [Mucinex Sr 600 mg Tablet.sa] 600 mg PO Q12 #30 tablet.sa 09/16/17 Levofloxacin [Levaquin 750 mg Tablet] 750 mg PO DAILY #3 tablet 09/16/17 Nicotine [Nicoderm 14 mg/24 Hr Transdermal Patch] 1 each TD DAILY #14 patch.td24 09/16/17 Prednisone [Deltasone 20 mg Tablet] 40 mg PO DAILY #8 tablet 09/16/17 History of Present Illness History of Present Illness: Per H&P by Dr. Olguin: KHUSHBOO ELIAS is a 62 year old female with past medical history of diabetes, hypertension, COPD and tobacco dependence. Patient complains of several days of rhinorrhea, shortness of breath, wheeze nonproductive cough. Symptoms not significantly improved by outpatient medications in the emergency room she is found to be hypoxic in the 80s and tachycardic in the 140s she is referred to the hospitalist for observation. She denies chest pain nausea vomiting palpitations. Denies fever or any new medications. She does have mild leukocytosis but an unremarkable chest x-ray. Hospital Course Hospital Course: The patient was admitted with acute respiratory failure with hypoxia secondary to a COPD exacerbation. She was empirically placed on Levaquin for coverage of a community-acquired pneumonia/bronchitis as her initial WBCs were mildly elevated to 11.4 and the patient reported a productive cough and subjective fever. She was provided therapy with supplemental oxygen, nebulizer treatments , and corticosteroids. Her respiratory status rapidly improved and she is now maintaining oxygen saturations while ambulatory on room air. The patient was noted to be mildly tachycardic and hypertensive, therefore was placed on p.o. diltiazem with subsequent improvement. At time of discharge, the patient is in stable condition, maintaining oxygen saturations while ambulatory on room air, and has been transitioned to p.o. Levaquin and prednisone without worsening symptoms. She is discharged to home with self-care. She is provided prescriptions for diltiazem, Pepcid, Mucinex, Levaquin, prednisone, and NicoDerm patches. She is advised to follow-up with her primary care provider within 1-2 weeks. Physical Exam Vital Signs: Temp Pulse Resp BP Pulse Ox 98.3 F 113 H 20 144/72 H 96 09/16/17 14:04 09/16/17 14:04 09/16/17 14:04 09/16/17 14:04 09/16/17 14:04 Intake & Output 09/15/17 09/16/17 09/17/17 06:59 06:59 06:59 Intake Total 2506 2504 660 Output Total 5400 3700 500 Balance -2894 -1196 160 Weight 73.2 kg 73.3 kg General appearance: PRESENT: no acute distress, well-developed, well-nourished, other - Overweight Head exam: PRESENT: atraumatic, normocephalic Eye exam: PRESENT: conjunctiva pink, EOMI, PERRLA. ABSENT: scleral icterus Ear exam: PRESENT: normal external ear exam Mouth exam: PRESENT: moist, tongue midline Neck exam: ABSENT: carotid bruit, JVD, lymphadenopathy, thyromegaly Respiratory exam: PRESENT: clear to auscultation becca, symmetrical, unlabored, wheezes - Slight expiratory wheeze bilaterally, other - Room air. ABSENT: rales , rhonchi Cardiovascular exam: PRESENT: RRR, +S1, +S2. ABSENT: diastolic murmur, rubs, systolic murmur, tachycardia Pulses: PRESENT: normal dorsalis pedis pul Vascular exam: PRESENT: normal capillary refill GI/Abdominal exam: PRESENT: normal bowel sounds, soft. ABSENT: distended, guarding, mass, organolmegaly, rebound, tenderness Rectal exam: PRESENT: deferred Extremities exam: PRESENT: full ROM. ABSENT: calf tenderness, clubbing, pedal edema Neurological exam: PRESENT: alert, awake, oriented to person, oriented to place , oriented to time, oriented to situation, CN II-XII grossly intact. ABSENT: motor sensory deficit Psychiatric exam: PRESENT: appropriate affect, normal mood. ABSENT: homicidal ideation, suicidal ideation Skin exam: PRESENT: dry, intact, warm. ABSENT: cyanosis, rash Results Laboratory Results: 09/16/17 04:30 09/16/17 04:30 09/16/17 09/16/17 04:30 04:30 WBC 14.9 H RBC 3.97 Hgb 11.4 L Hct 35.0 L MCV 88 MCH 28.7 MCHC 32.6 RDW 14.4 H Plt Count 346 Seg Neutrophils % 90.2 H Lymphocytes % 5.6 L Monocytes % 3.9 Eosinophils % 0.0 Basophils % 0.3 Absolute Neutrophils 13.5 H Absolute Lymphocytes 0.8 Absolute Monocytes 0.6 Absolute Eosinophils 0.0 Absolute Basophils 0.0 Sodium 133.3 L Potassium 4.3 Chloride 94 L Carbon Dioxide 27 Anion Gap 12 BUN 44 H Creatinine 1.25 Est GFR ( Amer) 53 L Est GFR (Non-Af Amer) 44 L Glucose 286 H Calcium 9.9 Magnesium 2.4 H Impressions: Chest X-Ray 09/13/17 05:15 IMPRESSION: 1. Bronchial interstitial thickening with bilateral interstitial opacities. This could be seen with reactive airways disease however acute interstitial edema or interstitial pneumonia could produce a similar appearance. Qualifiers - * PATEINT BEING DISCHARGED WITH ANY OF THE FOLLOWING DIAGNOSIS?: No
== END 2017-09-16 15:56 | disposition home or self-care (01) | DRG 189 ==
LOC: ER 05:11 → INTOOBSV 06:29 → EH 06:29 → 4S 22:46 → OBSVTOIN 09-14 09:18
PROVIDERS: ADMIT Internal Medicine Geriatric Medicine; ATTEND Internal Medicine Geriatric Medicine
PROC: 5A09357 Assistance with Respiratory Ventilation, Less than 24 Consecutive Hours, Continuous Positive Airway Pressure (ICD-10-PCS; principal; 2017-09-13)
PROC: 3E0F73Z Introduction of Anti-inflammatory into Respiratory Tract, Via Natural or Artificial Opening (ICD-10-PCS; 2017-09-14)
DX: J96.01 Acute respiratory failure with hypoxia (principal); J44.0 Chronic obstructive pulmonary disease with (acute) lower respiratory infection; J44.1 Chronic obstructive pulmonary disease with (acute) exacerbation; J20.9 Acute bronchitis, unspecified; J30.9 Allergic rhinitis, unspecified; E11.9 Type 2 diabetes mellitus without complications; Z79.4 Long term (current) use of insulin; I10 Essential (primary) hypertension; F17.200 Nicotine dependence, unspecified, uncomplicated; Z82.49 Family history of ischemic heart disease and other diseases of the circulatory system; R00.0 Tachycardia, unspecified
CPT/HCPCS: 36415; 71045; 80048; 80053; 81001; 82550; 82553; 82962; 83735; 83880; 84484; 85025; 85027; 87040; 90686; 93005; 93010; 94640; 94660; 94668; 96365; 99291; G0378; J1644; J1815; J1956; J2920; J2930; J3475; J3490; J7030; J7512; J7620

== ENCOUNTER 2017-10-04 13:25 | Inpatient (IN) | payer SELFPAY ==
[2017-10-04] MEDS ORDERED: PROPOFOL 100 ML IV PRN (13:43)
[2017-10-04] MEDS ORDERED: ETOMIDATE INJ/PF 20 MG/10 ML SDV IV ONE (13:43)
[2017-10-04] MEDS ORDERED: SUCCINYLCHOLINE CHLORIDE INJ 200 MG/10 ML VIAL IV ONE (13:43)
--- NOTE | 2017-10-04 14:20 | RADIOLOGY REPORT (SQ) ---
EXAM DESCRIPTION: CHEST SINGLE VIEW COMPLETED DATE/TIME: 10/04/2017 2:08 pm REASON FOR STUDY: resp failure, post intub COMPARISON: 09/13/2017. EXAM PARAMETERS: NUMBER OF VIEWS: One view. TECHNIQUE: Single frontal radiographic view of the chest acquired. RADIATION DOSE: NA LIMITATIONS: None. FINDINGS: LUNGS AND PLEURA: There is again evidence of bilateral pulmonary interstitial infiltrates. Interval development of right pleural thickening or effusion. MEDIASTINUM AND HILAR STRUCTURES: No masses. Contour normal. HEART AND VASCULAR STRUCTURES: The heart is normal. The pulmonary vasculature is unchanged and mildl y prominent. BONES: No acute findings. HARDWARE: None in the chest. OTHER: Endotracheal tube above willi. NG tube passing toward stomach. IMPRESSION: Endotracheal above willi. NG tube overlying stomach. Bilateral pulmonary interstitial infiltrates remain prominent which could represent acute or chronic interstitial change. Interval d evelopment of right pleural thickening or pleural effusion. TECHNICAL DOCUMENTATION: JOB ID: [id number] 2010 [employer]- All Rights Reserved Reading location - IP/workstation name: [email or web address]
--- NOTE | 2017-10-04 14:21 | RADIOLOGY REPORT (SQ) ---
EXAM DESCRIPTION: KUB/ABDOMEN (SINGLE VIEW) COMPLETED DATE/TIME: 10/04/2017 2:08 pm REASON FOR STUDY: ng tube placement COMPARISON: None. NUMBER OF VIEWS: One view. TECHNIQUE: Supine radiographic image of the abdomen acquired. LIMITATIONS: None. FINDINGS: BOWEL GAS PATTERN: Gas noted within the stomach. No definite pneumoperitoneum. . OTHER: NG tube overlying stomach. . IMPRESSION: NG tube overlying stomach. TECHNICAL DOCUMENTATION: JOB ID: [id number] 2010 [employer]- All Rights Reserved Reading location - IP/workstation name: [email or web address]
[2017-10-04] MEDS ORDERED: LEVOFLOXACIN 750 MG/D5W RTU 750 MG/150 ML RTUPB IV ONE (14:23)
--- NOTE | 2017-10-04 14:29 | ER Document Report ---
ED General - General Chief Complaint: Breathing Difficulty Stated Complaint: DIFFICULTY BREATHING Time Seen by Provider: 10/04/17 13:43 Mode of Arrival: Medic Information source: Patient, Emergency Med Personnel, [facility] Records Cannot obtain history due to: Unstable vital signs Notes: 62-year-old female presents in respiratory distress, patient has a history of COPD was recently admitted for COPD exacerbation last month by myself notes for the past day or so she has been having difficulty breathing. Patient noted to have peripheral edema by EMS Emergency traffic transport TRAVEL OUTSIDE OF THE [place] IN LAST 30 DAYS: No - HPI Onset: Yesterday Onset/Duration: Sudden Quality of pain: Sharp Severity: Mild Pain Level: 1 Associated symptoms: Nonproductive cough, Shortness of breath Exacerbated by: Walking Relieved by: Denies Similar symptoms previously: Yes Recently seen / treated by doctor: Yes - Related Data Allergies/Adverse Reactions: peanut Allergy (Severe, Verified 09/13/17 23:04) Swelling of Throat Penicillins Allergy (Intermediate, Verified 09/13/17 23:03) Hives Past Medical History - Social History Smoking Status: Unknown if Ever Smoked Cigarette use (# per day): No Chew tobacco use (# tins/day): No Smoking Education Provided: No Family History: CAD, COPD, Other - Alcoholism - Past Medical History Cardiac Medical History: Reports: Hx Hypertension Pulmonary Medical History: Reports: Hx COPD Endocrine Medical History: Reports: Hx Diabetes Mellitus Type 1 Renal/ Medical History: Denies: Hx Peritoneal Dialysis Psychiatric Medical History: Reports: Hx Depression Review of Systems - Review of Systems Notes: PHYSICAL EXAMINATION: GENERAL: significant resp distress HEAD: Atraumatic, normocephalic. EYES: Pupils equal round and reactive to light, extraocular movements intact, conjunctiva are normal. ENT: Nares patent, oropharynx clear without exudates. Moist mucous membranes. NECK: Normal range of motion, supple without lymphadenopathy LUNGS: decreased breath sounds iblateral, crackles at the bases HEART: Regular rate and rhythm without murmurs ABDOMEN: Soft, nontender, nondistended abdomen. No guarding, no rebound. No masses appreciated. Female : deferred Musculoskeletal: +2 pitting edema bilateral NEUROLOGICAL: Cranial nerves grossly intact. Normal speech, normal gait. Normal sensory, motor exams PSYCH: Normal mood, normal affect. SKIN: Warm, Dry, normal turgor, no rashes or lesions noted. -: Yes ROS unobtainable due to patient's medical condition Physical Exam - Vital signs Vitals: Pulse Ox 100 10/04/17 13:30 Course - Re-evaluation Re-evalutation: pt seen immediately upon presentation to the ed. presented in significant distress, unable ot speak more than 1 word at a time. decision made to intubate 10/04/17 14:28 Patient while intubated desatted to 87%, I increased the PEEP to 10 and O2 to 70 % sats went up to 96%, I have gradually lowered oxygen 10/04/17 14:45 pts o2 continues to fluctuate. pt is admitted to the icu, probable chf, copd exacerbation - Vital Signs Vital signs: Temp Pulse Resp BP Pulse Ox 100 10/04/17 13:30 Discharge - Discharge Clinical Impression: Asthma exacerbation in COPD, Acute respiratory failure with hypoxia, Respiratory distress Exacerbation of asthma Qualifiers: Asthma severity: severe Asthma persistence: persistent Qualified Code(s): J45.51 - Severe persistent asthma with (acute) exacerbation CHF (congestive heart failure) Qualifiers: Heart failure type: unspecified Heart failure chronicity: acute Qualified Code( s): I50.9 - Heart failure, unspecified Condition: Critical Disposition: ADMITTED INPATIENT Admitting Provider: Hospitalist Unit Admitted: ICU
[2017-10-04 14:57] LABS: ABSOLUTE BASOPHILS # (AUTO) 0.1 10^3/uL (0.0-0.2); ABSOLUTE EOSINOPHILS # (AUTO) 0.1 10^3/uL (0.0-0.6); ABSOLUTE LYMPHOCYTES (AUTO) 2.3 10^3/uL (0.5-4.7); ABSOLUTE MONOCYTES (AUTO) 0.7 10^3/uL (0.1-1.4); ABSOLUTE NEUT (AUTO) 11.8 10^3/uL (1.7-8.2); BASOPHILS % (AUTO) 0.6 % (0-2); EOSINOPHILS % (AUTO) 0.7 % (0-6); HEMATOCRIT 33.3 % (36.0-47.0); HEMOGLOBIN 10.7 g/dL (12.0-15.5); LYMPHOCYTES % (AUTO) 15.3 % (13-45); MEAN CORPUSCULAR HGB CONC 32.1 g/dL (32.0-36.0); MEAN CORPUSCULAR VOLUME 87 fl (80-97); MONOCYTES % (AUTO) 4.4 % (3-13); PLATELET COUNT 696 10^3/uL (150-450); RED BLOOD COUNT 3.82 10^6/uL (3.72-5.28); RED CELL DISTRIBUTION WIDTH 15.7 % (11.5-14.0); TOTAL CELLS COUNTED % (AUTO) 100 %; WHITE BLOOD COUNT 14.9 10^3/uL (4.0-10.5)
[2017-10-04] MEDS ORDERED: ROCURONIUM BROMIDE INJ 50 MG/5 ML VIAL IV ONE (14:58)
[2017-10-04] MEDS ORDERED: SUCCINYLCHOLINE CHLORIDE INJ 200 MG/10 ML VIAL ONE (14:58)
[2017-10-04 15:03] LABS: ALANINE AMINOTRANSFERASE 34 U/L (9-52); ALBUMIN 3.6 g/dL (3.5-5.0); ALKALINE PHOSPHATASE 118 U/L (38-126); ANION GAP 12 (5-19); ASPARTATE AMINO TRANSFERASE 17 U/L (14-36); BILIRUBIN,DIRECT 0.3 mg/dL (0.0-0.4); BILIRUBIN,TOTAL 0.6 mg/dL (0.2-1.3); BLOOD UREA NITROGEN 15 mg/dL (7-20); CALCIUM 9.5 mg/dL (8.4-10.2); CARBON DIOXIDE 29 mmol/L (22-30); CHLORIDE 95 mmol/L (98-107); CREATINE KINASE 129 U/L (30-135); GLUCOSE 356 mg/dL (75-110); POTASSIUM 4.1 mmol/L (3.6-5.0); SODIUM 135.7 mmol/L (137-145); TOTAL PROTEIN 6.4 g/dL (6.3-8.2)
[2017-10-04 15:15] LABS: CREATINE KINASE MB 2.51 ng/mL (<4.55)
[2017-10-04 15:18] LABS: TROPONIN I 0.062 ng/mL
[2017-10-04] MEDS ORDERED: FUROSEMIDE INJ/PF 20 MG/2 ML SDV IV ONE (15:22)
[2017-10-04] MEDS ORDERED: DEXTROSE 50%-WATER 25 GM/50 ML DISP.SYRIN IV PRN ×4 (15:24→15:33)
[2017-10-04] MEDS ORDERED: DEXTROSE 40% GEL 15 GM TUBE PO PRN ×4 (15:24→15:33)
[2017-10-04] MEDS ORDERED: GLUCAGON,HUMAN RECOMB 1 MG INJ SUBCUT PRN (15:24)
[2017-10-04] MEDS ORDERED: GLUCAGON,HUMAN RECOMB 1 MG INJ IM PRN (15:33)
[2017-10-04] MEDS ORDERED: FUROSEMIDE INJ/PF 40 MG/4 ML SDV IV ONE (16:00)
--- NOTE | 2017-10-04 16:32 | PDOC H&P ---
History of Present Illness Admission Date/PCP: 10/04/17 14:54 Patient complains of: Respiratory distress History of Present Illness: KHUSHBOO ELIAS is a 62 year old female with history of COPD, DM, HTN, and tobacco use who presents from home with SOB. Upon arrival to [facility] ED patient was placed CPAP. However due to worsening respiratory distress and work of breathing , was intubated in ED. No other history is obtainable. No family members are present. Patient is currently intubated and sedated. No other history is obtainable. Will be admitted to ICU by hospitalist service. Past Medical History Past Medical History: Per record, unable to obtain due to intubation/sediation. Cardiac Medical History: Reports: Hypertension Pulmonary Medical History: Reports: Asthma, Chronic Obstructive Pulmonary Disease (COPD) Endocrine Medical History: Reports: Diabetes Mellitus Type 1 Psychiatric Medical History: Reports: Depression Social History Information Source: Emergency Med Personnel Smoking Status: Smoker,Current Status Unk Frequency of Alcohol Use: None Drugs: None Family History Family History: CAD, COPD, Other - Alcoholism Parental Family History Reviewed: No - unable to query patient Children Family History Reviewed: Unknown Sibling(s) Family History Reviewed.: Unknown Medication/Allergy Home Medications: Albuterol Sulfate [Proventil Hfa] 2 puff IH Q12 09/13/17 Diclofenac Sodium [Voltaren] 75 mg PO BID 09/13/17 Fluticasone/Salmeterol [Advair 250-50 Diskus 14 Dose/Diskus] 1 puff IH Q12 09/13 Hydrochlorothiazide [Hydrodiuril 25 mg Tablet] 25 mg PO QAM 09/13/17 Insulin Aspart [Novolog Flexpen] 0 unit SUBCUT .SLD SCALE 09/13/17 Insulin Detemir [Levemir Flextouch] 95 unit SQ QHS 09/13/17 Olmesartan Medoxomil [Benicar] 20 mg PO DAILY 09/13/17 Acetaminophen [Tylenol 325 mg Tablet] 650 mg PO Q4HP PRN tablet 09/16/17 Diltiazem HCl [Cardizem Cd 120 mg Capsule] 120 mg PO Q12A #60 cap.sr.24h Famotidine [Pepcid 20 mg Tablet] 20 mg PO Q12 #60 tablet 09/16/17 Guaifenesin [Mucinex Sr 600 mg Tablet.sa] 600 mg PO Q12 #30 tablet.sa 09/16/17 Levofloxacin [Levaquin 750 mg Tablet] 750 mg PO DAILY #3 tablet 09/16/17 Nicotine [Nicoderm 14 mg/24 Hr Transdermal Patch] 1 each TD DAILY #14 patch.td24 09/16/17 Prednisone [Deltasone 20 mg Tablet] 40 mg PO DAILY #8 tablet 09/16/17 Allergies/Adverse Reactions: peanut Allergy (Severe, Verified 09/13/17 23:04) Swelling of Throat Penicillins Allergy (Intermediate, Verified 09/13/17 23:03) Hives Review of Systems ROS unobtainable: Due to endotracheal tube Physical Exam Vital Signs: Temp Pulse Resp BP Pulse Ox 99.5 F 17 107/76 98 10/04/17 13:55 10/04/17 16:01 10/04/17 16:01 10/04/17 16:01 General appearance: PRESENT: other - Ill appearing, older than states age, intubated, sedated Mouth exam: PRESENT: other - ETT in place Respiratory exam: PRESENT: crackles, rhonchi, other - Difficult exam due to habitus, crackles at lung bases, rhonchi Cardiovascular exam: PRESENT: +S1, +S2, tachycardia GI/Abdominal exam: PRESENT: soft. ABSENT: tenderness Neurological exam: PRESENT: other - Unable to assess Results Laboratory Results: Labs- All tests 24 hr 10/04/17 10/04/17 10/04/17 13:34 13:34 13:34 WBC 14.9 H RBC 3.82 Hgb 10.7 L Hct 33.3 L MCV 87 MCH 28.0 MCHC 32.1 RDW 15.7 H Plt Count 696 H Seg Neutrophils % 79.0 H Lymphocytes % 15.3 Monocytes % 4.4 Eosinophils % 0.7 Basophils % 0.6 Absolute Neutrophils 11.8 H Absolute Lymphocytes 2.3 Absolute Monocytes 0.7 Absolute Eosinophils 0.1 Absolute Basophils 0.1 Sodium 135.7 L Potassium 4.1 Chloride 95 L Carbon Dioxide 29 Anion Gap 12 BUN 15 Creatinine 0.98 Est GFR ( Amer) > 60 Est GFR (Non-Af Amer) 58 L Glucose 356 H Calcium 9.5 Total Bilirubin 0.6 Direct Bilirubin 0.3 Neonat Total Bilirubin Not Reportable Neonat Direct Bilirubin Not Reportable Neonat Indirect Bili Not Reportable AST 17 ALT 34 Alkaline Phosphatase 118 Creatine Kinase 129 CK-MB (CK-2) 2.51 Troponin I 0.062 NT-Pro-B Natriuret Pep 5900 H Total Protein 6.4 Albumin 3.6 Impressions: Chest X-Ray 10/04/17 13:43 IMPRESSION: Endotracheal above willi. NG tube overlying stomach. Bilateral pulmonary interstitial infiltrates remain prominent which could represent acute or chronic interstitial change. Interval development of right pleural thickening or pleural effusion. KUB X-Ray 10/04/17 13:44 IMPRESSION: NG tube overlying stomach. Assessment & Plan - Diagnosis (1) Acute respiratory failure with hypoxia Is this a current diagnosis for this admission?: Yes Plan: Most likely combination of COPD and acute CHF exacerbation. Patient has known history of COPD. No previous TTE on record - CXR with bronchial interstitial thickening with b/l interstitial opacities - ProBNP 5900 - Blood cultures obtained to r/o infection - ABG pending, will repeat in AM - Ordered IV Lasix 40mg IV BID, first dose in ED - Started on IV Levaquin empirically - Ideally should have TTE however not optimal in decompensated state - Consulted pulm for co-management of vent (2) CHF (congestive heart failure) Qualifiers: Heart failure type: unspecified Heart failure chronicity: acute Qualified Code(s): I50.9 - Heart failure, unspecified Is this a current diagnosis for this admission?: Yes Plan: Unclear if patient has history of CHF - Will need TTE when clinically indicated - Continue diuresis per above (3) Elevated troponin I level Is this a current diagnosis for this admission?: Yes Plan: Borderline elevated trop at admission (0.062), no associated EKG changes - Likely demand ischemia in setting of critical illness - Will repeat Trop at 10pm to ensure they are down-trending/stable (4) Tachycardia Is this a current diagnosis for this admission?: Yes Plan: Per above. (5) Diabetes Qualifiers: Diabetes mellitus type: type 2 Is this a current diagnosis for this admission?: Yes Plan: Poor controlled blood sugars - Will check HgA1c - Started LDISS + AC q6 hours while NPO - Will need good outpatient DM regimen prior to discharge - Time Time Spent: Greater than 70 Minutes Anticipated discharge: SNF - Inpatient Certification Medical Necessity: Significant Comorbidiites Make Outpatient Treatment Too Risky , Need For Continuous Telemetry Monitoring, Need for Nebulizer Therapy and Monitoring of Response
[2017-10-04 16:40] LABS: ARTERIAL BLOOD BASE EXCESS -0.2 mmol/L; ARTERIAL BLOOD H2CO3 1.61 mmol/L (1.05-1.35); ARTERIAL BLOOD HCO3 26.6 mmol/L (20-26); ARTERIAL BLOOD O2 SATURATION 94.1 % (94-98); ARTERIAL BLOOD PCO2 53.6 mmHg (35-45); ARTERIAL BLOOD PH 7.31 (7.35-7.45); ARTERIAL BLOOD PO2 76.9 mmHg (80-100); ARTERIAL BLOOD TOTAL CO2 28.3 mmol/L (21-25)
[2017-10-04] MEDS: IPRATROPIUM/ALBUTEROL 0.5-2.5 MG/3 ML AMPUL NEB SCH ×2 (17:08→20:23)
[2017-10-04] MEDS: PROPOFOL 100 ML IV PRN ×2 (18:20→23:13)
[2017-10-04] MEDS ORDERED: LACTULOSE SYRUP 20 GM/30 ML UDCUP PO ONE (18:30)
--- NOTE | 2017-10-04 19:09 | RADIOLOGY REPORT (SQ) ---
EXAM DESCRIPTION: KUB/ABDOMEN (SINGLE VIEW) COMPLETED DATE/TIME: 10/04/2017 6:58 pm REASON FOR STUDY: OG tube adjustment COMPARISON: 10/04/2017. NUMBER OF VIEWS: One view. TECHNIQUE: Supine radiographic image of the abdomen acquired. LIMITATIONS: None. FINDINGS: BOWEL GAS PATTERN: Normal bowel gas pattern. No dilated loops. CALCIFICATIONS: No suspicious calcifications. SOFT TISSUES: No gross mass or suggestion of organomegaly. HARDWARE: Nasogastric tube with the tip and distal side hole in the stomach. Catheter in the bladder . BONES: No acute fracture. No worrisome bone lesions. OTHER: No other significant finding. IMPRESSION: SATISFACTORY POSITION OF THE NASOGASTRIC TUBE. NO RADIOGRAPHIC EVIDENCE FOR ACUTE ABDOM INAL DISEASE. TECHNICAL DOCUMENTATION: JOB ID: [id number] [employer]- All Rights Reserved Reading location - IP/workstation name: [email or web address]
[2017-10-04] MEDS: FUROSEMIDE INJ/PF 40 MG/4 ML SDV IV SCH (21:54)
[2017-10-04] MEDS: METHYLPREDNISOLONE INJ 40 MG/1 ML SDV IV SCH (21:54)
[2017-10-04] MEDS ORDERED: FUROSEMIDE INJ/PF 20 MG/2 ML SDV IV SCH (22:00)
[2017-10-04 22:19] LABS: TRIGLYCERIDES 70 mg/dL (<150)
[2017-10-04 22:30] LABS: DIRECT LDL 125 mg/dL (<100)
[2017-10-04] MEDS ORDERED: ASPIRIN 81 MG TABLET, CHEWABLE ONE (23:13)
[2017-10-04] MEDS ORDERED: ASPIRIN 81 MG TABLET, CHEWABLE PO ONE (23:30)
[2017-10-04] MEDS ORDERED: ENOXAPARIN SODIUM INJ 80 MG/0.8 ML DISP.SYRIN SUBCUT ONE (23:30)
--- NOTE | 2017-10-05 00:06 | EKG REPORT ---
SEVERITY:- ABNORMAL ECG - SINUS TACHYCARDIA MULTIFORM VENTRICULAR PREMATURE COMPLEXES - R-ON-T PHENOMENON, BEWARE OF VT NONSPECIFIC ANTEROLATERAL ST-T CHANGES QT PROLONGATION : Confirmed by: Cade Arellano MD 05-Oct-2017 00:05:38
[2017-10-05] MEDS: IPRATROPIUM/ALBUTEROL 0.5-2.5 MG/3 ML AMPUL NEB SCH ×6 (00:10→20:06)
[2017-10-05] MEDS ORDERED: METOPROLOL TARTRATE PF/INJ 5 MG/5 ML SDV IV ONE ×2 (00:23→00:31)
[2017-10-05] MEDS: PROPOFOL 100 ML IV PRN ×6 (03:48→21:32)
[2017-10-05 04:02] LABS: HEMOGLOBIN 8.9 g/dL (12.0-15.5); MEAN CORPUSCULAR HEMOGLOBIN 28.4 pg (27.0-33.4); MEAN CORPUSCULAR HGB CONC 33.1 g/dL (32.0-36.0); MEAN CORPUSCULAR VOLUME 86 fl (80-97); PLATELET COUNT 418 10^3/uL (150-450); RED BLOOD COUNT 3.14 10^6/uL (3.72-5.28); RED CELL DISTRIBUTION WIDTH 15.2 % (11.5-14.0); WHITE BLOOD COUNT 9.3 10^3/uL (4.0-10.5)
[2017-10-05 04:39] LABS: ANION GAP 10 (5-19); BLOOD UREA NITROGEN 19 mg/dL (7-20); CALCIUM 8.3 mg/dL (8.4-10.2); CARBON DIOXIDE 29 mmol/L (22-30); CHLORIDE 96 mmol/L (98-107); GLUCOSE 310 mg/dL (75-110); SODIUM 134.9 mmol/L (137-145)
[2017-10-05] MEDS: METHYLPREDNISOLONE INJ 40 MG/1 ML SDV IV SCH ×3 (06:24→21:32)
[2017-10-05 06:34] LABS: ARTERIAL BLOOD BASE EXCESS 2.1 mmol/L; ARTERIAL BLOOD H2CO3 1.34 mmol/L (1.05-1.35); ARTERIAL BLOOD HCO3 27.2 mmol/L (20-26); ARTERIAL BLOOD PCO2 44.5 mmHg (35-45); ARTERIAL BLOOD PO2 81.2 mmHg (80-100); ARTERIAL BLOOD TOTAL CO2 28.6 mmol/L (21-25)
[2017-10-05 06:41] LABS: ARTERIAL BLOOD FIO2 40%
[2017-10-05 07:08] LABS: CREATINE KINASE MB 4.04 ng/mL (<4.55)
[2017-10-05 07:11] LABS: TROPONIN I 0.453 ng/mL
--- NOTE | 2017-10-05 07:30 | RADIOLOGY REPORT (SQ) ---
EXAM DESCRIPTION: CHEST SINGLE VIEW CLINICAL HISTORY: 62 years Female, on mechanical ventilator COMPARISON: 4.1.18 NUMBER OF VIEWS/TECHNIQUE: 1/AP LIMITATIONS: None. FINDINGS: Mild interstitial markings, normal cardiac silhouette, adequate enteric tube tip is 4.7 cm from the willi, and likely adequate enteric tube obscured at its tip. Atherosclerosis. No pneumothorax. No acute bone defect. IMPRESSION: No significant change.
[2017-10-05] MEDS ORDERED: METOPROLOL SUCCINATE 50 MG TAB.SR.24H PO SCH (10:00)
[2017-10-05] MEDS ORDERED: INSULIN GLARGINE,HUM.REC.ANLOG 300 UNIT/3 ML INSULN.PEN SUBCUT SCH (10:00)
[2017-10-05] MEDS ORDERED: ENOXAPARIN SODIUM INJ 40 MG/0.4 ML DISP.SYRIN SUBCUT SCH (10:00)
[2017-10-05] MEDS ORDERED: ASPIRIN 81 MG TABLET, CHEWABLE PO SCH (10:00)
[2017-10-05] MEDS ORDERED: INSULIN GLARGINE,HUM.REC.ANLOG 1,000 UNIT/10 ML UNIT SUBCUT SCH (10:00)
[2017-10-05] MEDS: LACTULOSE SYRUP 20 GM/30 ML UDCUP PO SCH (10:01)
[2017-10-05] MEDS: PANTOPRAZOLE SODIUM 40 MG VIAL IV SCH (10:03)
[2017-10-05] MEDS: FUROSEMIDE INJ/PF 40 MG/4 ML SDV IV SCH ×2 (10:03→21:32)
[2017-10-05] MEDS: ASPIRIN 81 MG TABLET, CHEWABLE PO SCH (10:03)
[2017-10-05] MEDS: LISINOPRIL 5 MG TABLET PO SCH (10:04)
[2017-10-05] MEDS: NICOTINE 14 MG/24 HR PATCH.TD24 TD SCH (10:04)
[2017-10-05] MEDS: ENOXAPARIN SODIUM INJ 80 MG/0.8 ML DISP.SYRIN SUBCUT SCH ×2 (10:05→21:33)
[2017-10-05] MEDS: INSULIN LISPRO 100 UNIT/ML 3 ML VIAL SUBCUT PRN ×2 (12:37→23:55)
--- NOTE | 2017-10-05 13:44 | XCELERA REPORT ---
[address] [address] Transthoracic Echocardiogram Report Name: KHUSHBOO ELIAS Age: 62 yrs Gender: Female : 1955 Patient Status: Inpatient Patient Location: ICU^609^A Study Date: 10/05/2017 10:44 AM Height: 63 in Weight: 158 lb BSA: 1.7 m2 Procedure: A complete two-dimensional transthoracic echocardiogram was performed (2D, M-mode, spectral and color flow Doppler). The study was technically difficult with many images being suboptimal in quality. Reason For Study: elevated troponin Ordering Physician: DIAN LAMBERT Performed By: Brenda Hernandez Interpretation Summary The left ventricular ejection fraction is normal. Doppler measurements suggest pseudonormalized left ventricular relaxation, which is associated with grade II/IV or mild to moderate diastolic dysfunction The left ventricle is grossly normal size. The right ventricle is grossly normal size. The right ventricular systolic function is normal. The right atrium is normal in size The left atrium is mildly dilated. There is no mitral valve stenosis. There is a moderate to severe amount of mitral regurgitation. More towrds moderate. There is a trace amount of aortic regurgitation There is no aortic valve stenosis There is a mild to moderate amount of tricuspid regurgitation There is moderate pulmonary hypertension by echo Right ventricular systolic pressure is estimated to be elevated at 40- 50mmHg. The aortic root is not well visualized but is probably normal size. The inferior vena cava appeared normal and decreased < 50% with respiration (RAP 10-15 mmHg) There is no pericardial effusion. MMode/2D Measurements & Calculations RVDd: 2.9 cm LVIDd: 4.5 cm FS: 36.6 % Ao root diam: 2.7 cm IVSd: 0.96 cm LVIDs: 2.8 cm EDV(Teich): 90.4 ml LVPWd: 0.95 cm ESV(Teich): 30.2 ml Ao root area: 5.6 cm2 EF(Teich): 66.6 % LA dimension: 3.9 cm Doppler Measurements & Calculations MV E max jimmy: MV P1/2t max jimmy: Ao V2 max: LV V1 max P.7 cm/sec 233.7 cm/sec 179.8 cm/sec 3.5 mmHg MV A max jimmy: MV P1/2t: 88.5 msec Ao max PG: LV V1 max: 225.2 cm/sec 12.9 mmHg 93.2 cm/sec MV E/A: 1.0 MVA(P1/2t): 2.5 cm2 MV dec slope: 773.1 cm/sec2 MV dec time: 0.28 sec PA V2 max: TR max jimmy: 67.1 cm/sec 347.5 cm/sec PA max P.8 mmHgTR max P.3 mmHg Left Ventricle The left ventricle is grossly normal size. There is borderline concentric left ventricular hypertrophy. The left ventricular ejection fraction is normal. Doppler measurements suggest pseudonormalized left ventricular relaxation, which is associated with grade II/IV or mild to moderate diastolic dysfunction. Wall motion cannot be accurately commented on, but no definite regional wall motion abnormalities noted. Right Ventricle The right ventricle is grossly normal size. There is normal right ventricular wall thickness. The right ventricular systolic function is normal. Atria The right atrium is normal in size. The left atrium is mildly dilated. Interarterial septum not well visualized and not well dopplered. Cannot comment on ASD/PFO presence. Mitral Valve There is mild mitral leaflet calcification. There is no mitral valve stenosis. There is a moderate to severe amount of mitral regurgitation. Aortic Valve The aortic valve is not well visualized secondary to technical limitations. The aortic valve is moderately calcified. There is no aortic valve stenosis. There is a trace amount of aortic regurgitation. Tricuspid Valve The tricuspid valve is not well visualized secondary to technical limitations. There is no tricuspid stenosis. There is a mild to moderate amount of tricuspid regurgitation. There is moderate pulmonary hypertension by echo. Right ventricular systolic pressure is estimated to be elevated at 40-50mmHg. Pulmonic Valve The pulmonic valve is not well visualized. Great Vessels The aortic root is not well visualized but is probably normal size. The inferior vena cava appeared normal and decreased < 50% with respiration (RAP 10-15 mmHg). Effusions There is no pericardial effusion. : DIAN LAMBERT > Kunal Rosa
--- NOTE | 2017-10-05 14:18 | PDOC PROGRESS REPORT ---
Subjective Progress Note for:: 10/05/17 Subjective:: Unable to obtain due to sedation Review of system Unable to obtain due to sedation All significant laboratories and diagnostics have been reviewed Reason For Visit: COPD EXACERBATION, CHF Physical Exam Vital Signs: Temp Pulse Resp BP Pulse Ox 98.8 F 102 H 21 H 125/107 H 98 10/04/17 17:47 10/05/17 07:44 10/05/17 06:02 10/05/17 06:02 10/05/17 06:02 Intake & Output 10/04/17 10/05/17 10/06/17 06:59 06:59 06:59 Output Total 950 Balance -950 Weight 71.8 kg General appearance: PRESENT: obese Head exam: PRESENT: atraumatic, normocephalic Eye exam: PRESENT: conjunctiva pink, EOMI, PERRLA Ear exam: PRESENT: normal external ear exam Mouth exam: PRESENT: moist Neck exam: ABSENT: JVD, lymphadenopathy, tenderness Respiratory exam: PRESENT: clear to auscultation becca Cardiovascular exam: PRESENT: tachycardia. ABSENT: diastolic murmur, systolic murmur Vascular exam: PRESENT: normal capillary refill GI/Abdominal exam: PRESENT: normal bowel sounds, soft, tenderness Extremities exam: PRESENT: +1 edema. ABSENT: full ROM Musculoskeletal exam: ABSENT: ambulatory Neurological exam: PRESENT: other - sedated Skin exam: PRESENT: intact, normal color Results Laboratory Results: 10/05/17 03:50 10/05/17 03:50 10/04/17 10/04/17 10/04/17 15:57 21:57 21:57 WBC RBC Hgb Hct MCV MCH MCHC RDW Plt Count Carbonic Acid HCO3/H2CO3 Ratio ABG pH ABG pCO2 ABG pO2 ABG HCO3 ABG O2 Saturation ABG Base Excess FiO2 Sodium Potassium Chloride Carbon Dioxide Anion Gap BUN Creatinine Est GFR ( Amer) Est GFR (Non-Af Amer) Glucose Lactic Acid 1.1 Calcium Magnesium 2.0 Triglycerides 70 Cholesterol 157.80 LDL Cholesterol Direct 125 H VLDL Cholesterol 14.0 HDL Cholesterol 23 L 10/05/17 10/05/17 10/05/17 03:50 03:50 06:00 WBC 9.3 RBC 3.14 L Hgb 8.9 L Hct 27.0 L MCV 86 MCH 28.4 MCHC 33.1 RDW 15.2 H Plt Count 418 Carbonic Acid 1.34 HCO3/H2CO3 Ratio 20:1 ABG pH 7.40 ABG pCO2 44.5 ABG pO2 81.2 ABG HCO3 27.2 H ABG O2 Saturation 96.0 ABG Base Excess 2.1 FiO2 40% Sodium 134.9 L Potassium 4.0 Chloride 96 L Carbon Dioxide 29 Anion Gap 10 BUN 19 Creatinine 0.82 Est GFR ( Amer) > 60 Est GFR (Non-Af Amer) > 60 Glucose 310 H Lactic Acid Calcium 8.3 L Magnesium 2.1 Triglycerides Cholesterol LDL Cholesterol Direct VLDL Cholesterol HDL Cholesterol 10/04/17 10/05/17 21:57 03:50 CK-MB (CK-2) 4.04 Troponin I 0.478 0.453 Impressions: KUB X-Ray 10/04/17 13:44 IMPRESSION: NG tube overlying stomach. Chest X-Ray 10/05/17 05:00 IMPRESSION: No significant change. Assessment & Plan - Diagnosis (1) NSTEMI (non-ST elevated myocardial infarction) Is this a current diagnosis for this admission?: Yes Plan: Likely due to myocardial demand ischemia in the setting of acute respiratory failure. Patient will be placed on aspirin and Lipitor (2) Acute respiratory failure with hypoxia Is this a current diagnosis for this admission?: Yes (3) Asthma exacerbation in COPD Is this a current diagnosis for this admission?: Yes (4) CHF (congestive heart failure) Qualifiers: Heart failure type: diastolic Heart failure chronicity: acute Qualified Code(s): I50.31 - Acute diastolic (congestive) heart failure Is this a current diagnosis for this admission?: Yes Plan: Likely elevated BNP related to an element of diastolic dysfunction and pulmonary hypertension. Continue diuresis (5) Diabetes Qualifiers: Diabetes mellitus type: type 2 Diabetes mellitus chcf insulin use: with ferry terminal agent use Diabetes mellitus complication status: with unspecified complications Qualified Code(s): E11.8 - Type 2 diabetes mellitus with unspecified complications; Z79.4 - MCFP (current) use of insulin; Z79.4 - [facility]FP (current) use of insulin; Z79.4 - termite control service representative (current) use of insulin; Z79.4 - [facility]FP (current) use of insulin Is this a current diagnosis for this admission?: Yes Plan: Will add Lantus and continue Humalog sliding scale (6) Pulmonary hypertension Is this a current diagnosis for this admission?: Yes Plan: Continue diuresis (7) Tobacco abuse Is this a current diagnosis for this admission?: Yes Plan: Order nicotine patch. Will educate once not intubated (8) Tachycardia Is this a current diagnosis for this admission?: Yes Plan: Long-standing problem on this patient. Will add TSH. To place on Toprol-XL (9) HTN (hypertension) Qualifiers: Hypertension type: essential hypertension Qualified Code(s): I10 - Essential (primary) hypertension Is this a current diagnosis for this admission?: Yes Plan: And lisinopril and Toprol - Time Time Spent with patient: 15-24 minutes Medications reviewed and adjusted accordingly: Yes Anticipated discharge: Acute Rehab Within: within 72 hours - Inpatient Certification Based on my medical assessment, after consideration of the patient's comorbidities, presenting symptoms, or acuity I expect that the services needed warrant INPATIENT care.: Yes I certify that my determination is in accordance with my understanding of Medicare's requirements for reasonable and necessary INPATIENT services [42 CFR 412.3e].: Yes Medical Necessity: Need Close Monitoring Due to Risk of Patient Decompensation, Need For Continuous Telemetry Monitoring
--- NOTE | 2017-10-05 15:33 | CONSULTATION REPORT E ---
Consultation Report NAME: KHUSHBOO ELIAS : 1955 AGE: 62Y DATE: 10/04/2017 ROOM: 609 A TO: ROJAS GONZALEZ M.D. FROM: BAILEY RACHEL M.D. Requesting Physician REASON FOR CONSULTATION: The patient is a 62-year-old female who came with severe COPD/asthma exacerbation, pulmonary edema, and acute respiratory failure, who came in with worsening dyspnea over the last few hours. The patient went to the emergency room, was tried on CPAP, did not improve and was then eventually intubated endotracheally and sedated and transferred to ICU. I am consulted because of acute respiratory failure. PAST MEDICAL HISTORY: History of COPD, diabetes, hypertension, tobacco use, and history of asthma and depression. SOCIAL HISTORY: Smoker, duration unknown. FAMILY HISTORY: History of COPD, CAD, alcoholism. HOME MEDICATIONS: Include albuterol inhaler, Voltaren, Advair, hydrochlorothiazide, Benicar, Tylenol, Cardizem, Pepcid, Levaquin, Mucinex, nicotine patch, and prednisone 20 mg. ALLERGIES: PEANUTS SEVERE AND PENICILLIN. REVIEW OF SYSTEMS: Unobtainable because the patient is currently sedated and mechanically ventilated. PHYSICAL EXAMINATION: GENERAL: The patient is sedated, afebrile, not in respiratory distress, currently breathing comfortably on a ventilator, . VITAL SIGNS: Blood pressure 107/76, pulse rate 106, temperature of 98.8 with a T-max of 99.2, respiratory rate of 16 and 17, saturation is 95% on 40% FiO2, pressure support of 10, PEEP of 5, SIMV therapy seen with tidal volume of 450 mL. EYES: No jaundice or pallor. EARS, NOSE, AND THROAT: No ear drainage. No nasal discharge. HEAD AND NECK: No scalp swelling or erythema. No neck stiffness. CHEST AND LUNGS: No wheezing, no rhonchi, no coarse crackles. CARDIOVASCULAR: S1 and S2 is distinct, tachycardic. ABDOMEN: Flabby, has positive bowel sounds. Soft, nondistended. EXTREMITIES: No cellulitis, no joint swelling. LABORATORY DATA: CBC showed a white count of 14.9, hemoglobin 10.7, hematocrit is 13.3, and platelet count is 696,000. ABG today showed a pH of 7.31, pCO2 of 53.6, pO2 of 76.9, and saturation is 94%. Chemistry done today showed sodium 135, potassium 4.1, chloride 95, CO2 is 29, BUN 15, creatinine 0.98, glucose is 159, lactate is 1.1, calcium is 9.5. NT-BNP is 5900. Troponin 0.062 and CK-MB is 2.51. Blood cultures are pending and sputum culture is not collected. IMAGING STUDIES: Chest x-ray showed infiltrate right base probably suggesting pulmonary edema or congestion. No apparent pneumonia noted. Endotracheal tube is in place. Showing mild moderate cardiomegaly. ASSESSMENT: 1. Acute respiratory failure requiring invasive mechanical ventilation. 2. COPD/asthma in severe acute exacerbation. 3. Pulmonary edema, concomitant. PLAN/RECOMMENDATION: 1. Agree with Lasix 40 mg IV q.12. 2. Will continue to optimize ventilatory support, -just started on SIMV rate of 18, tidal volume 400, pressure support 10, PEEP of 5, FiO2 of 40% and to titrate to keep O2 saturation 91-94%. 3. Continue IV sedation for ventilation using propofol. 4. GI prophylaxis; Protonix 40 mg once daily. 5. Continue DuoNeb nebulizer treatment every 6 hours. 6. Continue Levaquin 750 mg daily, IV piggyback. 7. Continue on nicotine patch. 8. Continue Solu-Medrol 40 mg IV q.12 hours. 9. Continue DVT prophylaxis using Lovenox 40 mg once daily. 10. We will start patient on OG tube feeding using Glucerna 1.2 mine at 10 mL per hour. 11. We will do a chest x-ray tomorrow, and do CBC and chemistry again tomorrow. DICTATING PHYSICIAN: ROJAS GONZALEZ MD,KRISTAN,MPH [id number] 1955 PHY#: [id number] 1906 ID: [id number] JOB#: [id number] ACCT: [id number] cc:ROJAS GONZALEZ M.D. > [facility] HOSPITALNapoleon
[2017-10-05] MEDS ORDERED: LEVOFLOXACIN 750 MG/D5W RTU 750 MG/150 ML RTUPB IV SCH (18:00)
[2017-10-05] MEDS: ATORVASTATIN CALCIUM 40 MG TABLET PO SCH (21:32)
[2017-10-06] MEDS: IPRATROPIUM/ALBUTEROL 0.5-2.5 MG/3 ML AMPUL NEB SCH ×6 (00:33→20:09)
[2017-10-06] MEDS: PROPOFOL 100 ML IV PRN (02:20)
[2017-10-06 04:19] LABS: HEMOGLOBIN 9.7 g/dL (12.0-15.5); MEAN CORPUSCULAR HEMOGLOBIN 27.5 pg (27.0-33.4); MEAN CORPUSCULAR HGB CONC 32.2 g/dL (32.0-36.0); MEAN CORPUSCULAR VOLUME 85 fl (80-97); PLATELET COUNT 505 10^3/uL (150-450); RED BLOOD COUNT 3.52 10^6/uL (3.72-5.28); RED CELL DISTRIBUTION WIDTH 15.5 % (11.5-14.0); WHITE BLOOD COUNT 14.4 10^3/uL (4.0-10.5)
[2017-10-06 04:40] LABS: ALANINE AMINOTRANSFERASE 28 U/L (9-52); ALBUMIN 3.1 g/dL (3.5-5.0); ALKALINE PHOSPHATASE 102 U/L (38-126); ANION GAP 8 (5-19); ASPARTATE AMINO TRANSFERASE 10 U/L (14-36); BILIRUBIN,DIRECT 0.3 mg/dL (0.0-0.4); BILIRUBIN,TOTAL 0.3 mg/dL (0.2-1.3); BLOOD UREA NITROGEN 25 mg/dL (7-20); CALCIUM 8.8 mg/dL (8.4-10.2); CARBON DIOXIDE 32 mmol/L (22-30); CHLORIDE 96 mmol/L (98-107); GLUCOSE 317 mg/dL (75-110); POTASSIUM 3.9 mmol/L (3.6-5.0); SODIUM 135.5 mmol/L (137-145); TOTAL PROTEIN 5.9 g/dL (6.3-8.2)
[2017-10-06 04:41] LABS: ABSOLUTE LYMPHOCYTES# (MANUAL) 0.4 10^3/uL (0.5-4.7); ABSOLUTE MONOCYTES # (MANUAL) 0.4 10^3/uL (0.1-1.4); ABSOLUTE NEUTROPHILS# (MANUAL) 13.5 10^3/uL (1.7-8.2); BASOPHILS % (MANUAL) 0 % (0-2); EOSINOPHILS % (MANUAL) 0 % (0-6); LYMPHOCYTES % (MANUAL) 3 % (13-45); MONOCYTES % (MANUAL) 3 % (3-13); SEGMENTED NEUTROPHILS % (MAN) 94 % (42-78); TOTAL CELLS COUNTED 100
[2017-10-06 04:42] LABS: ANISOCYTOSIS 1+; PLATELET COMMENT INCREASED
[2017-10-06] MEDS ORDERED: METOPROLOL TARTRATE PF/INJ 5 MG/5 ML SDV IV ONE ×2 (04:56→05:15)
[2017-10-06] MEDS: INSULIN LISPRO 100 UNIT/ML 3 ML VIAL SUBCUT PRN ×4 (05:27→23:34)
[2017-10-06] MEDS: METHYLPREDNISOLONE INJ 40 MG/1 ML SDV IV SCH (05:27)
[2017-10-06 05:31] LABS: ARTERIAL BLOOD BASE EXCESS 7.7 mmol/L; ARTERIAL BLOOD H2CO3 1.22 mmol/L (1.05-1.35); ARTERIAL BLOOD HCO3 31.4 mmol/L (20-26); ARTERIAL BLOOD O2 SATURATION 96.6 % (94-98); ARTERIAL BLOOD PCO2 40.4 mmHg (35-45); ARTERIAL BLOOD PH 7.51 (7.35-7.45); ARTERIAL BLOOD TOTAL CO2 32.6 mmol/L (21-25)
[2017-10-06 05:37] LABS: ARTERIAL BLOOD FIO2 30%
[2017-10-06 05:48] LABS: CREATINE KINASE MB 1.16 ng/mL (<4.55)
[2017-10-06 05:52] LABS: TROPONIN I 0.122 ng/mL
[2017-10-06] MEDS: LACTULOSE SYRUP 20 GM/30 ML UDCUP PO SCH (09:15)
[2017-10-06] MEDS ORDERED: METOPROLOL TARTRATE 50 MG TABLET ONE (09:21)
[2017-10-06] MEDS: PANTOPRAZOLE SODIUM 40 MG VIAL IV SCH (09:44)
[2017-10-06] MEDS: LISINOPRIL 5 MG TABLET PO SCH (09:45)
[2017-10-06] MEDS: ASPIRIN 81 MG TABLET, CHEWABLE PO SCH (09:46)
[2017-10-06] MEDS: FONDAPARINUX SODIUM INJ 2.5 MG/0.5 ML DISP.SYRIN SUBCUT SCH (09:47)
[2017-10-06] MEDS: FUROSEMIDE INJ/PF 40 MG/4 ML SDV IV SCH ×2 (09:50→21:04)
[2017-10-06] MEDS: INSULIN GLARGINE,HUM.REC.ANLOG 300 UNIT/3 ML INSULN.PEN SUBCUT SCH ×2 (09:50→18:30)
[2017-10-06] MEDS: NICOTINE 14 MG/24 HR PATCH.TD24 TD SCH (09:51)
[2017-10-06] MEDS ORDERED: METHYLPREDNISOLONE INJ 40 MG/1 ML SDV IV SCH ×2 (10:00→22:00)
[2017-10-06] MEDS ORDERED: PHENOL/SODIUM PHENOLATE 100 SPRAY/177 ML BOTTLE PO PRN (10:42)
--- NOTE | 2017-10-06 10:43 | EKG REPORT ---
SEVERITY:- ABNORMAL ECG - SINUS TACHYCARDIA MULTIPLE VENTRICULAR PREMATURE COMPLEXES NONSPECIFIC T ABNORMALITIES, LATERAL LEADS BORDERLINE PROLONGED QT INTERVAL : Confirmed by: Kunal Rosa 06-Oct-2017 10:42:38
[2017-10-06] MEDS ORDERED: SODIUM CHLORIDE NASAL SPRAY 44 ML NASL PRN (10:53)
[2017-10-06] MEDS: METOPROLOL TARTRATE 25 MG TABLET PO SCH ×2 (14:15→21:05)
--- NOTE | 2017-10-06 14:18 | PDOC PROGRESS REPORT ---
Subjective Progress Note for:: 10/06/17 Subjective:: Unable to obtain due to sedation Review of system Unable to obtain due to sedation All significant laboratories and diagnostics have been reviewed Reason For Visit: COPD EXACERBATION, CHF Physical Exam Vital Signs: Temp Pulse Resp BP Pulse Ox 99.3 F 106 H 22 H 117/62 95 10/06/17 01:58 10/06/17 04:06 10/06/17 06:02 10/06/17 06:02 10/06/17 06:02 Intake & Output 10/04/17 10/05/17 10/06/17 06:59 06:59 06:59 Intake Total 863 Output Total 950 1740 Balance -950 -877 Weight 71.8 kg 71.5 kg General appearance: PRESENT: no acute distress Head exam: PRESENT: atraumatic, normocephalic Eye exam: PRESENT: EOMI, PERRLA Ear exam: PRESENT: normal external ear exam Mouth exam: PRESENT: moist Neck exam: ABSENT: JVD, lymphadenopathy, tenderness Respiratory exam: PRESENT: clear to auscultation becca Cardiovascular exam: PRESENT: RRR. ABSENT: diastolic murmur, systolic murmur Vascular exam: PRESENT: normal capillary refill GI/Abdominal exam: PRESENT: normal bowel sounds, soft. ABSENT: tenderness Extremities exam: PRESENT: +2 edema. ABSENT: full ROM Musculoskeletal exam: ABSENT: ambulatory Neurological exam: PRESENT: other - sedated Psychiatric exam: PRESENT: other - sedated Skin exam: PRESENT: intact, normal color Results Laboratory Results: 10/06/17 03:51 10/06/17 03:51 10/05/17 10/06/17 10/06/17 06:00 03:51 03:51 WBC 14.4 H RBC 3.52 L Hgb 9.7 L Hct 30.0 L MCV 85 MCH 27.5 MCHC 32.2 RDW 15.5 H Plt Count 505 H Seg Neutrophils % Not Reportable Lymphocytes % Not Reportable Monocytes % Not Reportable Eosinophils % Not Reportable Basophils % Not Reportable Absolute Neutrophils Not Reportable Absolute Lymphocytes Not Reportable Absolute Monocytes Not Reportable Absolute Eosinophils Not Reportable Absolute Basophils Not Reportable Carbonic Acid 1.34 HCO3/H2CO3 Ratio 20:1 ABG pH 7.40 ABG pCO2 44.5 ABG pO2 81.2 ABG HCO3 27.2 H ABG O2 Saturation 96.0 ABG Base Excess 2.1 FiO2 40% Sodium 135.5 L Potassium 3.9 Chloride 96 L Carbon Dioxide 32 H Anion Gap 8 BUN 25 H Creatinine 0.92 Est GFR ( Amer) > 60 Est GFR (Non-Af Amer) > 60 Glucose 317 H Calcium 8.8 Magnesium 2.4 H Total Bilirubin 0.3 AST 10 L ALT 28 Alkaline Phosphatase 102 Total Protein 5.9 L Albumin 3.1 L TSH 10/06/17 10/06/17 03:51 05:18 WBC RBC Hgb Hct MCV MCH MCHC RDW Plt Count Seg Neutrophils % Lymphocytes % Monocytes % Eosinophils % Basophils % Absolute Neutrophils Absolute Lymphocytes Absolute Monocytes Absolute Eosinophils Absolute Basophils Carbonic Acid 1.22 HCO3/H2CO3 Ratio 25:1 ABG pH 7.51 H ABG pCO2 40.4 ABG pO2 79.0 L ABG HCO3 31.4 H ABG O2 Saturation 96.6 ABG Base Excess 7.7 FiO2 30% Sodium Potassium Chloride Carbon Dioxide Anion Gap BUN Creatinine Est GFR ( Amer) Est GFR (Non-Af Amer) Glucose Calcium Magnesium Total Bilirubin AST ALT Alkaline Phosphatase Total Protein Albumin TSH 0.04 L 10/04/17 10/05/17 10/06/17 21:57 03:50 05:10 Creatine Kinase 79 CK-MB (CK-2) 4.04 Troponin I 0.478 0.453 10/06/17 05:10 Creatine Kinase CK-MB (CK-2) 1.16 Troponin I 0.122 Impressions: KUB X-Ray 10/04/17 13:44 IMPRESSION: NG tube overlying stomach. Chest X-Ray 10/05/17 05:00 IMPRESSION: No significant change. Assessment & Plan - Diagnosis (1) NSTEMI (non-ST elevated myocardial infarction) Is this a current diagnosis for this admission?: Yes Plan: Likely due to myocardial demand ischemia in the setting of acute respiratory failure. Continue lipitor and aspirin (2) Acute respiratory failure with hypoxia Is this a current diagnosis for this admission?: Yes Plan: Manged per Dr Lino (3) Asthma exacerbation in COPD Is this a current diagnosis for this admission?: Yes Plan: Continue present management except to decrease IV steroids (4) CHF (congestive heart failure) Qualifiers: Heart failure type: diastolic Heart failure chronicity: acute Qualified Code(s): I50.31 - Acute diastolic (congestive) heart failure Is this a current diagnosis for this admission?: Yes Plan: Likely elevated BNP related to an element of diastolic dysfunction and pulmonary hypertension. Continue diuresis (5) Diabetes Qualifiers: Diabetes mellitus type: type 2 Diabetes mellitus terminal block assembler insulin use: with halfway use Diabetes mellitus complication status: with unspecified complications Qualified Code(s): E11.8 - Type 2 diabetes mellitus with unspecified complications; Z79.4 - superintendent container terminal (current) use of insulin; Z79.4 - detention (current) use of insulin; Z79.4 - detention (current) use of insulin; Z79.4 - superintendent container terminal (current) use of insulin Is this a current diagnosis for this admission?: Yes Plan: Increase Lantus and continue Humalog sliding scale (6) Pulmonary hypertension Is this a current diagnosis for this admission?: Yes Plan: Continue diuresis (7) Tobacco abuse Is this a current diagnosis for this admission?: Yes Plan: Continue nicotine patch. Will educate once not intubated (8) HTN (hypertension) Qualifiers: Hypertension type: essential hypertension Qualified Code(s): I10 - Essential (primary) hypertension Is this a current diagnosis for this admission?: Yes Plan: Continue lisinopril and metoprolol (9) V-tach Is this a current diagnosis for this admission?: Yes Plan: Did not receive Toprol-XL yesterday. To place patient on metoprolol tartrate. Will consult cardiology - Time Time Spent with patient: 15-24 minutes Medications reviewed and adjusted accordingly: Yes Anticipated discharge: Acute Rehab Within: within 72 hours - Inpatient Certification Based on my medical assessment, after consideration of the patient's comorbidities, presenting symptoms, or acuity I expect that the services needed warrant INPATIENT care.: Yes I certify that my determination is in accordance with my understanding of Medicare's requirements for reasonable and necessary INPATIENT services [42 CFR 412.3e].: Yes Medical Necessity: Need Close Monitoring Due to Risk of Patient Decompensation, Need For Continuous Telemetry Monitoring, Need for Nebulizer Therapy and Monitoring of Response
--- NOTE | 2017-10-06 15:36 | PROGRESS NOTE E ---
Progress Note NAME: KHUSHBOO ELIAS : 1955 AGE: 62Y DATE: 10/05/2017 ROOM: 609 SUBJECTIVE: The patient is a 62-year-old female who came in yesterday for acute respiratory failure, who failed BiPAP and required endotracheal intubation and invasive mechanical ventilation. The patient has been afebrile for the last 24 hours. Has scanty endotracheal tube secretions. Blood pressure has been stable. The patient tolerated OG tube feeding at 10 mL every hour. There was nausea, vomiting, and diarrhea. OBJECTIVE: GENERAL: The patient appeared sedated,afebrile, not in apparent acute respiratory distress. VITAL SIGNS: Temperature is 99 degrees Fahrenheit, heart rate of 110, blood pressure is 130/68, respiratory rate of 18. The saturation is 97% on 40% FiO2, SIMV rate of 16, tidal volume of 400, pressure support of 10, PEEP of 5. EYES: No jaundice or pallor. EARS, NOSE, AND THROAT: No ear drainage. No nasal discharge. HEAD AND NECK: No scalp swelling or tenderness. Neck is supple. CHEST AND LUNGS: No wheezing, no rhonchi, no coarse crackles. CARDIOVASCULAR: S1 and S2 distinct. Normal rate, regular rhythm. ABDOMEN: Flabby, positive bowel sounds, soft, and nondistended. EXTREMITIES: No cellulitis, no joint swelling. LABORATORY DATA: CBC done today showed a white count of 9.3, hemoglobin 8.9, hematocrit is 27, platelet count is 418. ABG done today showed a pH of 7.4, pCO2 of 44, pO2 of 81, and bicarb is 37, saturation 96%. Chemistry done today showed potassium 4, chloride 96, CO2 of 29, BUN 19, creatinine 0.82, glucose is 210, and calcium is 8.3. Troponin I is 4.04. IMAGING STUDIES: Chest x-ray done today showed endotracheal tube is in place, infiltrate bibasally, there is mild cardiomegaly. CARDIOLOGY STUDIES: Echocardiogram done today showed ejection fraction of about 45%. ASSESSMENT: 1. ACUTE RESPIRATORY FAILURE REQUIRING INVASIVE MECHANICAL VENTILATION. Currently stable. Maybe able to extubate the patient tomorrow if the patient is doing well on reduced breathing trial. 2. COPD IN ACUTE EXACERBATION. Currently stable and resolved. 3. HISTORY OF PULMONARY EDEMA AND CONGESTIVE HEART FAILURE. PLAN: 1. We continue to optimize ventilator support. 2. We will start patient on feeding tonight. 3. We will hold sedation medication tomorrow and subsequently will do spontaneous breathing trial, and possibly extubate the patient if doing well. 4. Continue IV antibiotics. 5. We will continue the Solu-Medrol for now at 40 mg IV every 6 hours. 6. We will continue the nebulizer treatment every 4 hours. DICTATING PHYSICIAN: ROJAS GONZALEZ MD,KRISTAN,MPH [id number] 2008 PHY#: [id number] 2007 ID: [id number] JOB#: [id number] ACCT: [id number] cc: > MTDD
[2017-10-06] MEDS ORDERED: FLUTICASONE/SALMETEROL DISKUS 500-50 MCG/DOSE IH ONE (19:30)
[2017-10-06] MEDS ORDERED: TIOTROPIUM BROMIDE DPI 5 CAP/KIT (18 MCG/CAP) IH ONE (19:30)
--- NOTE | 2017-10-06 20:04 | PDOC CONSULTATION ---
Consultation Consult Date: 10/06/17 Attending physician:: BAILEY COHN Consult reason:: Ventricular tachycardia History of Present Illness Admission Date/PCP: 10/04/17 14:54 Patient complains of: Shortness of breath History of Present Illness: KHUSHBOO ELIAS is a 62 year old female with history of COPD, DM, HTN, and tobacco use who presents from home with SOB. Upon arrival to [facility] ED patient was placed CPAP. However due to worsening respiratory distress and work of breathing , was intubated in ED. No other history is obtainable. No family members are present. Patient is currently intubated and sedated. No other history is obtainable. Will be admitted to ICU by hospitalist service. Patient was subsequently extubated. This morning, she was noted to have polymorphic tachycardia which was nonsustained. It seems patient received IV levofloxacin about 12 hours ago which was subsequently discontinued. Patient's electrolytes and magnesium levels were noted to be within normal limit. QT interval was noted to be mildly prolonged. Patient's troponin I was noted to be elevated however it was in the setting of acute respiratory distress and severe hypoxemia. Patient electrocardiogram did not show any acute ST-T wave changes. Patient currently placed on beta-blockers and currently seeming stable without any chest pain. However on questioning patient did have chest pain few days ago. Patient denied any prior history of heart problems, prior history of sustained palpitations, syncope or near syncope. Past Medical History Cardiac Medical History: Reports: Hypertension Pulmonary Medical History: Reports: Asthma, Chronic Obstructive Pulmonary Disease (COPD) Endocrine Medical History: Reports: Diabetes Mellitus Type 1 Psychiatric Medical History: Reports: Depression Social History Information Source: Patient Smoking Status: Current Every Day Smoker Frequency of Alcohol Use: None Drugs: None - Advance Directive Resuscitation Status: Full Code Family History Family History: CAD, COPD, Other - Alcoholism Parental Family History Reviewed: Yes Children Family History Reviewed: Yes Sibling(s) Family History Reviewed.: Yes Medication/Allergy Home Medications: Albuterol Sulfate [Proair HFA] 2 puff IH Q4HP PRN 10/04/17 Diclofenac Sodium [Voltaren] 75 mg PO BID 10/04/17 Diltiazem HCl [Diltiazem 24Hr ER] 120 mg PO Q12 10/04/17 Docusate Sodium [Colace 100 mg Capsule] 100 mg PO DAILYP PRN 10/04/17 Fluticasone/Salmeterol [Advair 250-50 Diskus 28 dose] 1 inh IH Q12 10/04/17 Hydrochlorothiazide [Hydrodiuril 25 mg Tablet] 25 mg PO QAM 10/04/17 Insulin Aspart [Novolog Flexpen] 0 unit SUBCUT .SLD SCALE 10/04/17 Insulin Detemir [Levemir Flextouch] 0 unit SQ .QHS 10/04/17 Ipratropium/Albuterol Sulfate [Duoneb 3 ml Ampul] 3 ml NEB RTQ6HP PRN 10/04/17 Olmesartan Medoxomil [Benicar] 20 mg PO DAILY 10/04/17 Allergies/Adverse Reactions: peanut Allergy (Severe, Verified 09/13/17 23:04) Swelling of Throat Penicillins Allergy (Intermediate, Verified 09/13/17 23:03) Hives Review of Systems Review of Systems: Please see history of present illness and past medical history as wall. Constitutional: No fever or chills reported. Head : No recent chronic headaches, recent head injury. Eyes: No recent eye pain, diplopia, redness, discharge, acute visual changes. Ears: No recent chronic ear pain, acute hearing loss, ear discharge. Oral cavity: No recent ulcerations, bleeding, oral cavity discomfort. Neck: No recent acute neck pain reported. Hematologic: No recent easy bruising or bleeding or hematologic malignancy reported. Lymphatic: No recent lymphatic malignancy, chronic lymphadenopathy reported yet Cardiovascular system review: See history of present illness. Respiratory system review: Patient describes chronic cough and congestion. Denies recent hemoptysis, blood clots in the lungs reported. Shortness of breath on exertion Gastrointestinal system review: Negative for any recent acute or chronic abdominal pain, hematemesis, melena, recent change in bowel habits. Genitourinary system review: No recent acute or chronic hematuria, flank pain, UTI etc. reported. Skin system review: Negative for any recent abnormal bruising, no rash, no pruritus reported. Neurologic: No prior history of strokes, mini strokes, seizure disorder. Psychologic: No history of major psychosis or major depression reported. Musculoskeletal: Minor aches and pains reported. No acute joint swelling reported. Endocrine: No recent polyuria, polydipsia, recent heat or cold intolerance. Physical Exam Vital Signs: Temp Pulse Resp BP Pulse Ox 99.0 F 102 H 20 113/57 L 99 10/06/17 18:00 10/06/17 18:00 10/06/17 18:03 10/06/17 18:03 10/06/17 18:03 Intake & Output 10/05/17 10/06/17 10/07/17 06:59 06:59 06:59 Intake Total 863 448 Output Total 909 8439 935 Balance -950 -877 -487 Weight 71.8 kg 71.5 kg Exam: GENERAL: well-nourished and in no acute distress. Alert and oriented x3 HEAD: Atraumatic, normocephalic. EYES: Pupils equal round and reactive to light, extraocular movements intact, sclera anicteric, conjunctiva are normal. ENT: TMs normal, nares patent, oropharynx clear without exudates. Moist mucous membranes. No oral ulcerations or bleeding gums noted NECK: supple without lymphadenopathy. Trachea is central. No cervical or axillary lymphadenopathy noted. Carotids are 2+, JVD WNL LUNGS: Respiration seems nonlabored, no significant accessory muscle action noted. Bibasilar fine crackles and few a scattered wheezes rales or rhonchi noted. No significant dullness noted on percussion. CHEST: Palpation of the chest wall shows no significant chest wall tenderness. No other significant abnormalities noted. HEART: [place] DISC SANDER, No PSH, 1/6 KERI aortic area, 1/6 smith systolic murmur mitral area, no rubs, no gallops. ABDOMEN: Soft, no significant tenderness appreciated, normoactive bowel sounds. No guarding, no rebound. No rigidity noted . No masses appreciated. EXTREMITIES: Pedal pulses are 1-2+, no calf tenderness noted. No clubbing or cyanosis. negative pedal edema noted NEUROLOGICAL: Focused neurological exam showed no significant neurologic deficit. Normal speech, no focal weakness appreciated. PSYCH: Normal mood, normal affect. Judgment and insight within normal limits. SKIN: No significant ecchymosis, skin is noted to be warm. MUSCULOSKELETAL EXAM: No significant acute joint swelling noted. Results Laboratory Results: 10/06/17 03:51 10/06/17 03:51 10/06/17 10/06/17 10/06/17 03:51 03:51 03:51 WBC 14.4 H RBC 3.52 L Hgb 9.7 L Hct 30.0 L MCV 85 MCH 27.5 MCHC 32.2 RDW 15.5 H Plt Count 505 H Seg Neutrophils % Not Reportable Lymphocytes % Not Reportable Monocytes % Not Reportable Eosinophils % Not Reportable Basophils % Not Reportable Absolute Neutrophils Not Reportable Absolute Lymphocytes Not Reportable Absolute Monocytes Not Reportable Absolute Eosinophils Not Reportable Absolute Basophils Not Reportable Carbonic Acid HCO3/H2CO3 Ratio ABG pH ABG pCO2 ABG pO2 ABG HCO3 ABG O2 Saturation ABG Base Excess FiO2 Sodium 135.5 L Potassium 3.9 Chloride 96 L Carbon Dioxide 32 H Anion Gap 8 BUN 25 H Creatinine 0.92 Est GFR ( Amer) > 60 Est GFR (Non-Af Amer) > 60 Glucose 317 H Calcium 8.8 Magnesium 2.4 H Total Bilirubin 0.3 AST 10 L ALT 28 Alkaline Phosphatase 102 Total Protein 5.9 L Albumin 3.1 L TSH 0.04 L 10/06/17 05:18 WBC RBC Hgb Hct MCV MCH MCHC RDW Plt Count Seg Neutrophils % Lymphocytes % Monocytes % Eosinophils % Basophils % Absolute Neutrophils Absolute Lymphocytes Absolute Monocytes Absolute Eosinophils Absolute Basophils Carbonic Acid 1.22 HCO3/H2CO3 Ratio 25:1 ABG pH 7.51 H ABG pCO2 40.4 ABG pO2 79.0 L ABG HCO3 31.4 H ABG O2 Saturation 96.6 ABG Base Excess 7.7 FiO2 30% Sodium Potassium Chloride Carbon Dioxide Anion Gap BUN Creatinine Est GFR ( Amer) Est GFR (Non-Af Amer) Glucose Calcium Magnesium Total Bilirubin AST ALT Alkaline Phosphatase Total Protein Albumin TSH 10/04/17 10/05/17 10/06/17 21:57 03:50 05:10 Creatine Kinase 79 CK-MB (CK-2) 4.04 Troponin I 0.478 0.453 10/06/17 05:10 Creatine Kinase CK-MB (CK-2) 1.16 Troponin I 0.122 EKG Comments: Showed sinus rhythm, with frequent VPCs, borderline T-wave inversion, borderline QT prolongation. Impressions: KUB X-Ray 10/04/17 13:44 IMPRESSION: NG tube overlying stomach. Chest X-Ray 10/05/17 05:00 IMPRESSION: No significant change. Assessment & Plan - Diagnosis (1) V-tach Is this a current diagnosis for this admission?: Yes (2) Mitral regurgitation Qualifiers: Cardiac valve disease etiology: etiology unspecified Qualified Code(s): I34.0 - Nonrheumatic mitral (valve) insufficiency Is this a current diagnosis for this admission?: Yes (3) CHF (congestive heart failure) Qualifiers: Heart failure type: diastolic Heart failure chronicity: acute Qualified Code(s): I50.31 - Acute diastolic (congestive) heart failure Is this a current diagnosis for this admission?: Yes (4) Acute respiratory failure with hypoxia Is this a current diagnosis for this admission?: Yes (5) Diabetes Qualifiers: Diabetes mellitus type: type 2 Diabetes mellitus remote computer terminal operator insulin use: with remote computer terminal operator use Diabetes mellitus complication status: with unspecified complications Qualified Code(s): E11.8 - Type 2 diabetes mellitus with unspecified complications; Z79.4 - remote computer terminal operator (current) use of insulin; Z79.4 - remote computer terminal operator (current) use of insulin; Z79.4 - remote computer terminal operator (current) use of insulin; Z79.4 - residential (current) use of insulin Is this a current diagnosis for this admission?: Yes (6) HTN (hypertension) Qualifiers: Hypertension type: essential hypertension Qualified Code(s): I10 - Essential (primary) hypertension Is this a current diagnosis for this admission?: Yes (7) NSTEMI (non-ST elevated myocardial infarction) Is this a current diagnosis for this admission?: Yes (8) Tobacco abuse Is this a current diagnosis for this admission?: Yes - Notes Notes: Ventricular tachycardia: Patient noted to have polymorphic ventricular tachycardia. There were 2 nonsustained episodes. Patient had received Levaquin intravenously about 12 hours before. Patient has positive troponin I there is possibility that this could be ischemic. 2D echocardiogram obtained previously was reviewed. It does show probable apical hypokinesia and also moderate mitral regurgitation. At this point will recommend optimization of medical management and referral for heart catheterization. In this regard I have talked with the import export coordinator at [facility] and put her on the list for transfer. Mitral regurgitation: Moderate in severity. CHF: Acute, diastolic, exact etiology not clear. Possibly related to ischemia, volume overload, COPD exacerbation etc. Agree with diuretic therapy. Acute respiratory failure with hypoxemia: Patient just got extubated today. Continue with oxygen supplementation. Diabetes: Recommend maintaining good glycemic control but avoid any hyper or hypoglycemia. Non-STEMI: Patient has positive troponin I in this range. There is no significant EKG changes except for minor nonspecific T-wave inversion but patient did have chest discomfort previously. Tobacco abuse: Patient has been advised to quit smoking. COPD: Patient seems to have significant COPD. Agree with concurrent management by engineer gas pumping station. - Time Time Spent: 30 to 50 Minutes - CODE STATUS was discussed, patient remains full code. Multiple medical problems were addressed. More than 50% of the time spent coordinating care, discussing management plans with involved caregivers. Management plans discussed with involved personnels. Medical decision making was of moderate to high complexity, patient's has multiple comorbidities. Medications reviewed and adjusted accordingly: Yes
[2017-10-06 20:42] LABS: FREE T3 3.87 pg/mL (2.77-5.27); FREE T4 (FREE THYROXINE) 2.11 ng/dL (0.78-2.19)
[2017-10-06] MEDS: ATORVASTATIN CALCIUM 40 MG TABLET PO SCH (21:05)
[2017-10-07] MEDS: IPRATROPIUM/ALBUTEROL 0.5-2.5 MG/3 ML AMPUL NEB SCH ×2 (00:36→03:48)
[2017-10-07] MEDS ORDERED: DIPHENHYDRAMINE HCL 50 MG/ML VIAL IV ONE (03:26)
[2017-10-07] MEDS ORDERED: DIPHENHYDRAMINE HCL 50 MG/ML VIAL ONE (03:27)
[2017-10-07 04:35] LABS: ABSOLUTE LYMPHOCYTES (AUTO) 0.8 10^3/uL (0.5-4.7); ABSOLUTE NEUT (AUTO) 12.4 10^3/uL (1.7-8.2); BASOPHILS % (AUTO) 0.2 % (0-2); HEMATOCRIT 31.2 % (36.0-47.0); HEMOGLOBIN 10.2 g/dL (12.0-15.5); LYMPHOCYTES % (AUTO) 5.7 % (13-45); MEAN CORPUSCULAR HEMOGLOBIN 27.8 pg (27.0-33.4); MEAN CORPUSCULAR HGB CONC 32.7 g/dL (32.0-36.0); MEAN CORPUSCULAR VOLUME 85 fl (80-97); MONOCYTES % (AUTO) 6.9 % (3-13); PLATELET COUNT 585 10^3/uL (150-450); RED BLOOD COUNT 3.68 10^6/uL (3.72-5.28); RED CELL DISTRIBUTION WIDTH 16.1 % (11.5-14.0); SEGMENTED NEUTROPHILS % (AUTO) 87.2 % (42-78); TOTAL CELLS COUNTED % (AUTO) 100 %; WHITE BLOOD COUNT 14.3 10^3/uL (4.0-10.5)
[2017-10-07 04:50] LABS: ANION GAP 8 (5-19); BLOOD UREA NITROGEN 26 mg/dL (7-20); CALCIUM 8.9 mg/dL (8.4-10.2); CARBON DIOXIDE 35 mmol/L (22-30); CHLORIDE 93 mmol/L (98-107); GLUCOSE 246 mg/dL (75-110); POTASSIUM 4.1 mmol/L (3.6-5.0); SODIUM 135.9 mmol/L (137-145)
[2017-10-07] MEDS: METOPROLOL TARTRATE 25 MG TABLET PO SCH (05:02)
[2017-10-07] MEDS: INSULIN LISPRO 100 UNIT/ML 3 ML VIAL SUBCUT PRN (05:50)
[2017-10-07] MEDS ORDERED: FUROSEMIDE INJ/PF 40 MG/4 ML SDV IV SCH (06:57)
[2017-10-07] MEDS ORDERED: INSULIN LISPRO 100 UNIT/ML 3 ML VIAL SUBCUT ONE (07:15)
[2017-10-07] MEDS ORDERED: DIPHENHYDRAMINE HCL 25 MG CAPSULE PO PRN (07:40)
[2017-10-07] MEDS ORDERED: ALPRAZOLAM 0.25 MG TABLET PO PRN (07:40)
[2017-10-07] MEDS: ALBUTEROL SULFATE 0.083% NEB 2.5 MG/3 ML AMPUL NEB PRN ×2 (09:02→13:27)
[2017-10-07] MEDS: FONDAPARINUX SODIUM INJ 2.5 MG/0.5 ML DISP.SYRIN SUBCUT SCH (09:41)
[2017-10-07] MEDS: INSULIN GLARGINE,HUM.REC.ANLOG 300 UNIT/3 ML INSULN.PEN SUBCUT SCH (09:43)
[2017-10-07] MEDS: ASPIRIN 81 MG TABLET, CHEWABLE PO SCH (09:45)
[2017-10-07] MEDS: NICOTINE 14 MG/24 HR PATCH.TD24 TD SCH (09:46)
[2017-10-07] MEDS: LACTULOSE SYRUP 20 GM/30 ML UDCUP PO SCH (09:46)
[2017-10-07] MEDS ORDERED: DILTIAZEM HCL 120 MG CAP.SR.24H PO SCH (10:00)
[2017-10-07] MEDS ORDERED: METOPROLOL SUCCINATE 50 MG TAB.SR.24H PO SCH (10:00)
[2017-10-07] MEDS ORDERED: FUROSEMIDE INJ/PF 20 MG/2 ML SDV IV SCH (10:00)
[2017-10-07] MEDS ORDERED: LISINOPRIL 5 MG TABLET PO SCH (10:00)
[2017-10-07] MEDS ORDERED: TIOTROPIUM BROMIDE DPI 5 CAP/KIT (18 MCG/CAP) IH SCH (10:00)
[2017-10-07] MEDS ORDERED: FLUOXETINE HCL 20 MG CAPSULE PO SCH (10:00)
[2017-10-07] MEDS ORDERED: FLUTICASONE/SALMETEROL DISKUS 500-50 MCG/DOSE IH SCH (10:00)
--- NOTE | 2017-10-07 11:21 | PDOC PROGRESS REPORT ---
Subjective Progress Note for:: 10/07/17 Subjective:: Patient relates that she took a medication and got itchiness. She thinks it was metoprolol. Review of system Unable to obtain due to sedation All significant laboratories and diagnostics have been reviewed Reason For Visit: COPD EXACERBATION, CHF Physical Exam Vital Signs: Temp Pulse Resp BP Pulse Ox 98.4 F 104 H 19 118/62 99 10/07/17 05:55 10/07/17 03:50 10/07/17 03:50 10/07/17 02:02 10/07/17 03:50 Intake & Output 10/05/17 10/06/17 10/07/17 06:59 06:59 06:59 Intake Total 863 448 Output Total 950 2011 5430 Balance -126 -432 -4077 Weight 71.8 kg 71.5 kg 68.3 kg General appearance: PRESENT: no acute distress, cooperative, well-developed, well-nourished Head exam: PRESENT: atraumatic, normocephalic Eye exam: PRESENT: conjunctiva pink, EOMI, PERRLA Ear exam: PRESENT: normal external ear exam Mouth exam: PRESENT: moist Neck exam: PRESENT: full ROM. ABSENT: JVD, lymphadenopathy, tenderness Respiratory exam: PRESENT: clear to auscultation becca Cardiovascular exam: PRESENT: tachycardia. ABSENT: diastolic murmur, systolic murmur Vascular exam: PRESENT: normal capillary refill Extremities exam: PRESENT: full ROM, pedal edema Musculoskeletal exam: PRESENT: ambulatory Neurological exam: PRESENT: alert, awake, oriented to person, oriented to place , oriented to time, oriented to situation, CN II-XII grossly intact Psychiatric exam: PRESENT: anxious Skin exam: PRESENT: normal color Results Laboratory Results: 10/07/17 04:24 10/07/17 04:24 10/06/17 10/07/17 10/07/17 05:10 04:24 04:24 WBC 14.3 H RBC 3.68 L Hgb 10.2 L Hct 31.2 L MCV 85 MCH 27.8 MCHC 32.7 RDW 16.1 H Plt Count 585 H Seg Neutrophils % 87.2 H Lymphocytes % 5.7 L Monocytes % 6.9 Eosinophils % 0.0 Basophils % 0.2 Absolute Neutrophils 12.4 H Absolute Lymphocytes 0.8 Absolute Monocytes 1.0 Absolute Eosinophils 0.0 Absolute Basophils 0.0 Sodium 135.9 L Potassium 4.1 Chloride 93 L Carbon Dioxide 35 H Anion Gap 8 BUN 26 H Creatinine 0.81 Est GFR ( Amer) > 60 Est GFR (Non-Af Amer) > 60 Glucose 246 H Calcium 8.9 Magnesium 2.4 H Free T4 2.11 Free T3 pg/mL 3.87 10/04/17 10/05/17 10/06/17 21:57 03:50 05:10 Creatine Kinase 79 CK-MB (CK-2) 4.04 Troponin I 0.478 0.453 10/06/17 05:10 Creatine Kinase CK-MB (CK-2) 1.16 Troponin I 0.122 Impressions: KUB X-Ray 10/04/17 13:44 IMPRESSION: NG tube overlying stomach. Chest X-Ray 10/05/17 05:00 IMPRESSION: No significant change. Assessment & Plan - Diagnosis (1) NSTEMI (non-ST elevated myocardial infarction) Is this a current diagnosis for this admission?: Yes Plan: Likely due to myocardial demand ischemia in the setting of acute respiratory failure. Continue lipitor and aspirin (2) Acute respiratory failure with hypoxia Is this a current diagnosis for this admission?: Yes Plan: Extubated on September 05 successfully (3) Asthma exacerbation in COPD Is this a current diagnosis for this admission?: Yes Plan: Will discontinue IV steroids due to hyperglycemia. Will also discontinue DuoNeb 's and Spiriva since patient is allergic to peanuts (4) CHF (congestive heart failure) Qualifiers: Heart failure type: diastolic Heart failure chronicity: acute Qualified Code(s): I50.31 - Acute diastolic (congestive) heart failure Is this a current diagnosis for this admission?: Yes Plan: To increase lisinopril. To restart Cardizem as outpatient. To discontinue Lasix IV and transitioned to oral (5) Diabetes Qualifiers: Diabetes mellitus type: type 2 Diabetes mellitus care home insulin use: with care home use Diabetes mellitus complication status: with unspecified complications Qualified Code(s): E11.8 - Type 2 diabetes mellitus with unspecified complications; Z79.4 - tooth clerk (current) use of insulin; Z79.4 - tooth clerk (current) use of insulin; Z79.4 - tooth clerk (current) use of insulin; Z79.4 - [facility] (current) use of insulin Is this a current diagnosis for this admission?: Yes Plan: Continue Lantus, add premeal Humalog and continue Humalog sliding scale (6) Pulmonary hypertension Is this a current diagnosis for this admission?: Yes Plan: Continue diuresis (7) Tobacco abuse Is this a current diagnosis for this admission?: Yes Plan: Continue nicotine patch. Educated about quitting (8) HTN (hypertension) Qualifiers: Hypertension type: essential hypertension Qualified Code(s): I10 - Essential (primary) hypertension Is this a current diagnosis for this admission?: Yes Plan: Restart Cardizem same dose as outpatient and increase lisinopril dose (9) V-tach Is this a current diagnosis for this admission?: Yes Plan: Nonsustained. Dr. Rosa following up. Recommends CTA of the chest (10) Pruritus Is this a current diagnosis for this admission?: Yes Plan: I am more concerned about the possibility of itchiness caused by duo nebs and Spiriva since she has has allergy to peanuts. However we will go ahead and stop metoprolol and place her on Benadryl since she relates have been working for her - Time Time Spent with patient: 15-24 minutes Medications reviewed and adjusted accordingly: Yes Anticipated discharge: Home Within: within 72 hours - Inpatient Certification Based on my medical assessment, after consideration of the patient's comorbidities, presenting symptoms, or acuity I expect that the services needed warrant INPATIENT care.: Yes I certify that my determination is in accordance with my understanding of Medicare's requirements for reasonable and necessary INPATIENT services [42 CFR 412.3e].: Yes Medical Necessity: Need Close Monitoring Due to Risk of Patient Decompensation, Need For Continuous Telemetry Monitoring
--- NOTE | 2017-10-07 11:51 | RADIOLOGY REPORT (SQ) ---
EXAM DESCRIPTION: CTA CHEST COMPLETED DATE/TIME: 10/07/2017 11:22 am REASON FOR STUDY: CP, resp failure COMPARISON: AP chest 10/05/2017 TECHNIQUE: CT scan of the chest performed using helical scanning technique with dynamic intravenous contrast injection. Images reviewed with lung, soft tissue and bone windows. Reconstructed coronal and sagittal MPR images reviewed. Additional 3 dimensional post-processing performed to develop Maximal Intensity Projection images (MA P). All images stored on PACS. All CT scanners at this facility use dose modulation, iterative reconstruction, and/or weight based d osing when appropriate to reduce radiation dose to as low as reasonably achievable (ALARA). [facility]: Dose Right [facility]: CareDose [facility]: Dose Right [facility]: Teradose 4D [facility]: ulike CONTRAST TYPE AND DOSE: contrast/concentration: Isovue 370.00 mg/ml; Total Contrast Delivered: 61.0 ml; Total Saline Delivered: 85.0 ml Contrast bolus optimized for the pulmonary arteries. Not diagnostic for the aorta. RENAL FUNCTION: Creatinine 0.81 RADIATION DOSE: CT Rad equipment meets quality standard of care and radiation dose reduction techniq ues were employed. CTDIvol: 11.3 - 14.5 mGy. DLP: 531 mGy-cm. . LIMITATIONS: None. FINDINGS: LUNGS AND PLEURA: There are small bilateral pleural effusions with very mild patchy ground -glass opacity throughout both lungs likely from congestive failure or fluid overload. Minimal dependent atelectasis in the posterior costophrenic sulci. Airways are patent. No pulmonary nodules. No pneumothorax. AORTA AND GREAT VESSELS: No aneurysm. Contrast bolus not optimized for the aorta. HEART: No pericardial effusion. Moderate coronary artery calcifications. Calcified aortic valve, mine cified mitral annulus. PULMONARY ARTERIES: No emboli visualized in the main pulmonary arteries or the segmental branches. HILAR AND MEDIASTINAL STRUCTURES: No identified masses or abnormal nodes. HARDWARE: None in the chest. UPPER ABDOMEN: 4 mm calculus left upper pole kidney. THYROID AND OTHER SOFT TISSUES: Subcentimeter densely calcified right thyroid nodule of doubtful sign ificance. BONES: No acute or significant finding. 3D MIPS: Confirm above findings. OTHER: No other significant finding. IMPRESSION: No CT angio evidence of acute pulmonary emboli. Small bilateral pleural effusions with mild lung parenchymal ground-glass opacities from alveolar ric ma Bibasilar atelectasis COMMENT: Quality ID # [id number]: Final reports with documentation of one or more dose reduction techniques (e.g., Automated exposure control, adjustment of the mA and/or kV according to patient size, use of iterative reconstruction technique) TECHNICAL DOCUMENTATION: JOB ID: [id number] [employer]- All Rights Reserved Reading location - IP/workstation name: [email or web address]
[2017-10-07] MEDS ORDERED: SERTRALINE HCL 50 MG TABLET PO ONE (13:30)
[2017-10-07] MEDS: INSULIN LISPRO 100 UNIT/ML 3 ML VIAL SUBCUT SCH ×2 (13:37→17:16)
[2017-10-07 13:38] VITALS: BP 136/75
--- NOTE | 2017-10-07 13:46 | PDOC TRANSFER SUMMARY ---
General Admission Date/PCP: 10/04/17 14:54 Resuscitation Status: Full Code - Transfer Diagnosis (1) V-tach Is this a current diagnosis for this admission?: Yes (2) Mitral regurgitation Is this a current diagnosis for this admission?: Yes (3) CHF (congestive heart failure) Is this a current diagnosis for this admission?: Yes (4) Acute respiratory failure with hypoxia Is this a current diagnosis for this admission?: Yes (5) Diabetes Is this a current diagnosis for this admission?: Yes (6) HTN (hypertension) Is this a current diagnosis for this admission?: Yes (7) NSTEMI (non-ST elevated myocardial infarction) Is this a current diagnosis for this admission?: Yes (8) Tobacco abuse Is this a current diagnosis for this admission?: Yes - Transfer Medications Home Medications: Albuterol Sulfate [Proair HFA] 2 puff IH Q4HP PRN 10/04/17 Diclofenac Sodium [Voltaren] 75 mg PO BID 10/04/17 Diltiazem HCl [Diltiazem 24Hr ER] 120 mg PO Q12 10/04/17 Docusate Sodium [Colace 100 mg Capsule] 100 mg PO DAILYP PRN 10/04/17 Fluticasone/Salmeterol [Advair 250-50 Diskus 28 dose] 1 inh IH Q12 10/04/17 Hydrochlorothiazide [Hydrodiuril 25 mg Tablet] 25 mg PO QAM 10/04/17 Insulin Aspart [Novolog Flexpen] 0 unit SUBCUT .SLD SCALE 10/04/17 Insulin Detemir [Levemir Flextouch] 0 unit SQ .QHS 10/04/17 Ipratropium/Albuterol Sulfate [Duoneb 3 ml Ampul] 3 ml NEB RTQ6HP PRN 10/04/17 Olmesartan Medoxomil [Benicar] 20 mg PO DAILY 10/04/17 Transfer Medications: Current Medications Albuterol (Ventolin 0.083% Neb 2.5 Mg/3 Ml Ampul) 2.5 mg NEB RTQ3HP PRN PRN Reason: FOR WHEEZING Stop: 11/06/17 07:40 Last Admin: 10/07/17 13:27 Dose: 2.5 mg Alprazolam (Xanax 0.25 Mg Tablet) 0.25 mg PO Q6HP PRN PRN Reason: ANXIETY Stop: 10/14/17 07:39 Aspirin (Aspirin 81 Mg Chewable Tablet) 81 mg PO DAILY KODY Stop: 11/04/17 09:59 Last Admin: 10/07/17 09:45 Dose: 81 mg Atorvastatin Calcium (Lipitor 40 Mg Tablet) 40 mg PO QHS KODY Stop: 11/04/17 21:59 Last Admin: 10/06/17 21:05 Dose: 40 mg Dextrose (Dextrose Inj 50% Syringe (25 Gm/50 Ml)) 12.5 gm IV PRN PRN; Protocol PRN Reason: FOR BG 50-69 IN ALERT PATIENT Stop: 11/03/17 15:23 Dextrose (Dextrose Inj 50% Syringe (25 Gm/50 Ml)) 25 gm IV PRN PRN; Protocol PRN Reason: See Label Comments Stop: 11/03/17 15:23 Diltiazem HCl (Cardizem Cd 120 Mg Capsule) 120 mg PO Q12 KODY Stop: 11/06/17 09:59 Last Admin: 10/07/17 09:45 Dose: 120 mg Diphenhydramine HCl (Benadryl 25 Mg Capsule) 25 mg PO Q6HP PRN PRN Reason: ITCHING Stop: 11/06/17 07:39 Fondaparinux (Arixtra Inj 2.5 Mg/0.5 Ml Disp.Syrin) 2.5 mg SUBCUT DAILY [facility] Stop: 11/05/17 09:59 Last Admin: 10/07/17 09:41 Dose: 2.5 mg Furosemide (Lasix 20 Mg Tablet) 20 mg PO BID [facility] Stop: 11/06/17 17:59 Glucagon (Glucagen Inj 1 Mg Vial) 1 mg IM PRN PRN; Protocol PRN Reason: Evaluate for BG < 70 Stop: 11/03/17 15:32 Glucose (Glutose 40% Gel 15 Gm Tube) 15 gm PO PRN PRN; Protocol PRN Reason: For BG 50-69 in Alert Patient Stop: 11/03/17 15:23 Glucose (Glutose 40% Gel 15 Gm Tube) 30 gm PO PRN PRN; Protocol PRN Reason: FOR BG < 50 IN ALERT PATIENT Stop: 11/03/17 15:23 Insulin Glargine (Lantus Insulin Inj 300 Unit/3 Ml Pen) 30 unit SUBCUT BID [facility] Stop: 11/05/17 09:59 Last Admin: 10/07/17 09:43 Dose: 30 unit Insulin Human Lispro (Humalog Insulin 100 Unit/1 Ml 3 Ml Vial) 0 - 12 unit SUBCUT Q6HP PRN; Protocol PRN Reason: PER PROTOCOL Stop: 11/03/17 15:32 Last Admin: 10/07/17 05:50 Dose: 8 unit Insulin Human Lispro (Humalog Insulin 100 Unit/1 Ml 3 Ml Vial) 6 unit SUBCUT AC KODY Stop: 11/06/17 10:59 Last Admin: 10/07/17 13:37 Dose: Not Given Lactulose (Cephulac Syrup 20 Gm/30 Ml Udcup) 10 gm PO DAILY KODY Stop: 11/04/17 09:59 Last Admin: 10/07/17 09:46 Dose: 10 gm Lisinopril (Prinivil 5 Mg Tablet) 10 mg PO DAILY KODY Stop: 11/06/17 09:59 Last Admin: 10/07/17 09:45 Dose: 10 mg Nicotine (Nicoderm 14 Mg/24 Hr Transdermal Patch) 1 each TD DAILY KODY Stop: 11/04/17 09:59 Last Admin: 10/07/17 09:46 Dose: 1 each Phenol (Chloraseptic Sore Throat [place] 177 Ml) 2 spray PO Q2HP PRN PRN Reason: SORE THROAT Stop: 11/05/17 10:41 Fluticasone/Salmeterol (Advair 500-50 Diskus 14 Dose/Diskus) 1 inh IH Q12 KODY Stop: 11/06/17 09:59 Last Admin: 10/07/17 10:07 Dose: 1 inh Sertraline HCl (Zoloft 50 Mg Tablet) 100 mg PO DAILY KODY Stop: 11/07/17 09:59 Sodium Chloride (Saline Flush 2.5 Ml Monoject Prefil Syrin) 2.5 ml IV Q8 KODY Stop: 11/03/17 21:59 Last Admin: 10/07/17 05:02 Dose: 2.5 ml Sodium Chloride ([place] Nasal [place] 44 Ml Bottle) 2 spray NASL Q1HP PRN PRN Reason: NASAL CONGESTION Stop: 11/05/17 10:52 Last Admin: 10/07/17 09:44 Dose: 2 spray - Allergies Allergies/Adverse Reactions: peanut Allergy (Severe, Verified 09/13/17 23:04) Swelling of Throat Penicillins Allergy (Intermediate, Verified 09/13/17 23:03) Hives Hospital Course Hospital Course: Please refer to hospitalist admission and physical and subsequent progress reports. Patient was admitted with acute respiratory failure. I was asked to consult on this patient yesterday because of ventricular tachycardia, polymorphic. There were 2 episodes and seemed fairly sustained but patient did not need to be shocked. Of note patient did receive IV Levaquin 1 dose about 12 hours before. 2D echocardiogram showed apical hypokinesia. Patient also complained of chest pain during this hospitalization and also prior to hospitalization. Patient had positive troponin I. Patient also has congestive heart failure. A CTA chest was performed just to rule out any pulmonary embolism. This was negative. Also showed moderate coronary calcification. Overall suggest high risk features. Feel that the best option would be heart catheterization. This was related to the patient and she accepted being transferred. This transfer was arranged. [facility] cardiology attending Chano Barnhart is the accepting physician. Physical Exam Vital Signs: Temp Pulse Resp BP Pulse Ox 99.3 F 92 16 136/75 H 98 10/07/17 12:00 10/07/17 13:27 10/07/17 13:27 10/07/17 12:00 10/07/17 12:00 Intake & Output 10/06/17 10/07/17 10/08/17 06:59 06:59 06:59 Intake Total 863 448 Output Total 1740 2270 360 Balance -877 -1822 -360 Weight 71.5 kg 68.3 kg Exam: GENERAL: well-nourished and in no acute distress. Alert and oriented x3 HEAD: Atraumatic, normocephalic. EYES: Pupils equal round and reactive to light, extraocular movements intact, sclera anicteric, conjunctiva are normal. ENT: TMs normal, nares patent, oropharynx clear without exudates. Moist mucous membranes. No oral ulcerations or bleeding gums noted NECK: supple without lymphadenopathy. Trachea is central. No cervical or axillary lymphadenopathy noted. Carotids are 2+, JVD WNL LUNGS: Respiration seems nonlabored, no significant accessory muscle action noted. Breath sounds clear to auscultation bilaterally and equal noted. No wheezes rales or rhonchi noted. No significant dullness noted on percussion. CHEST: Palpation of the chest wall shows no significant chest wall tenderness. No other significant abnormalities noted. 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 ABDOMEN: Soft, no significant tenderness appreciated, normoactive bowel sounds. No guarding, no rebound. No rigidity noted . No masses appreciated. EXTREMITIES: Pedal pulses are 1-2+, no calf tenderness noted. No clubbing or cyanosis. 1+ pedal edema noted NEUROLOGICAL: Focused neurological exam showed no significant neurologic deficit. Normal speech, no focal weakness appreciated. PSYCH: Normal mood, normal affect. Judgment and insight within normal limits. SKIN: No significant ecchymosis, skin is noted to be warm. MUSCULOSKELETAL EXAM: No significant acute joint swelling noted. Results Laboratory Results: 10/07/17 04:24 10/07/17 04:24 10/06/17 10/07/17 10/07/17 05:10 04:24 04:24 WBC 14.3 H RBC 3.68 L Hgb 10.2 L Hct 31.2 L MCV 85 MCH 27.8 MCHC 32.7 RDW 16.1 H Plt Count 585 H Seg Neutrophils % 87.2 H Lymphocytes % 5.7 L Monocytes % 6.9 Eosinophils % 0.0 Basophils % 0.2 Absolute Neutrophils 12.4 H Absolute Lymphocytes 0.8 Absolute Monocytes 1.0 Absolute Eosinophils 0.0 Absolute Basophils 0.0 Sodium 135.9 L Potassium 4.1 Chloride 93 L Carbon Dioxide 35 H Anion Gap 8 BUN 26 H Creatinine 0.81 Est GFR ( Amer) > 60 Est GFR (Non-Af Amer) > 60 Glucose 246 H Calcium 8.9 Magnesium 2.4 H Free T4 2.11 Free T3 pg/mL 3.87 10/05/17 17:45 Tracheal Aspirate Gram Stain - Final 10/05/17 17:45 Tracheal Aspirate Sputum Culture - Final NORMAL JW 10/04/17 10/05/17 10/06/17 21:57 03:50 05:10 Creatine Kinase 79 CK-MB (CK-2) 4.04 Troponin I 0.478 0.453 10/06/17 05:10 Creatine Kinase CK-MB (CK-2) 1.16 Troponin I 0.122 Impressions: KUB X-Ray 10/04/17 13:44 IMPRESSION: NG tube overlying stomach. Chest X-Ray 10/05/17 05:00 IMPRESSION: No significant change. Chest/Abdomen CTA 10/07/17 09:55 IMPRESSION: No CT angio evidence of acute pulmonary emboli. Small bilateral pleural effusions with mild lung parenchymal ground-glass opacities from alveolar edema Bibasilar atelectasis Plan Time Spent: Greater than 30 Minutes - Transfer to [facility] for heart catheterization, EP consult etc.
--- NOTE | 2017-10-07 15:00 | PROGRESS NOTE E ---
Progress Note NAME: KHUSHBOO ELIAS : 1955 AGE: 62Y DATE: 10/06/2017 ROOM: 609 SUBJECTIVE: The patient is a 62-year-old female who came in with acute respiratory failure requiring invasive mechanical ventilation due to severe COPD exacerbation. Vital signs have been stable over the last 24 hours. The patient has been afebrile with a temperature just 91 degrees Fahrenheit with a T-max of 99 degrees Fahrenheit. No nausea, vomiting, diarrhea. Tolerating the OG tube feeding. Patient had spontaneous breathing trial today using pressure support ventilation 5 / 5 and subsequently a T piece. The patient did well, lasted about 30 minutes on a T piece trial. The patient was extubated this morning. Currently she is feeling well. Denies any increasing shortness of breath, chest tightness or chest pain or nausea and vomiting. OBJECTIVE: VITAL SIGNS: Temperature is 99 degrees Fahrenheit, pulse rate of 97, blood pressure is 118/61, respiratory rate 16, saturation is 97% on 2 liters nasal cannula. EYES: No jaundice or pallor. EARS, NOSE, AND THROAT: No ear drainage noted. No nasal discharge. HEAD AND NECK: No scalp swelling or tenderness. Neck is supple. CHEST AND LUNGS: No wheezing, no rhonchi, no coarse crackles. CARDIOVASCULAR: S1 and S2 is distinct. Normal rate, regular rhythm. ABDOMEN: Flabby, positive bowel sounds, soft, nondistended, nontender. EXTREMITIES: No joint swelling and no cellulitis. LABORATORY DATA: CBC done today showed a white count of 14.4, hemoglobin 9.7, hematocrit is 30, and platelet count is 505. ABG done at 5 a.m. in the morning showed pH of 7.51, pCO2 of 40, pO2 of 79, and saturation 96.6% on 30% FiO2. Chemistry done today showed sodium 135, potassium 3.9, chloride 96, CO2 is 32, BUN is 25, creatinine 0.92, calcium is 8.8, magnesium is 2.4, and SGOT is 10, total protein is 5.9, and albumin is 3.1. ASSESSMENT: 1. ACUTE RESPIRATORY FAILURE REQUIRING INVASIVE MECHANICAL VENTILATION. Currently improved and currently the patient is extubated. Currently doing well after extubation and discontinuation of the invasive mechanical ventilation. 2. HISTORY OF COPD. Currently stable and not in acute exacerbation. 3. HISTORY OF PULMONARY EDEMA/HEART FAILURE. PLAN: 1. We will continue to optimize oxygen saturation on this patient. Give oxygen therapy at 2 liters. If patient becomes more tachypneic or tachycardic we might put the patient back on a BiPAP 06/14. 2. Continue IV antibiotics. 3. We will decrease the Solu-Medrol to 20 mg q.12 and we will start the patient on Advair 500 one puff b.i.d. and Spiriva inhaler 1 capsule daily. DICTATING PHYSICIAN: ROJAS GONZALEZ MD,KRISTAN,MPH [id number] PHY#: [id number] [id number] JOB#: [id number] ACCT: [id number] cc: > MTDD
[2017-10-07] MEDS ORDERED: METOPROLOL TARTRATE PF/INJ 5 MG/5 ML SDV IV ONE (15:13)
[2017-10-07] MEDS ORDERED: METOPROLOL TARTRATE PF/INJ 5 MG/5 ML SDV IV PRN (15:17)
[2017-10-07] MEDS ORDERED: FUROSEMIDE 20 MG TABLET PO SCH (18:00)
--- NOTE | 2017-10-07 20:20 | PDOC PROGRESS REPORT ---
Subjective Progress Note for:: 10/07/17 Subjective:: Patient seems to be doing better with gradual improvement. Pt is denying any chest arm or neck discomfort. Patient denying any PND, orthopnea. Patient denied any sustained palpitations, dizziness, syncope, near syncope. Patient denying any fever chills. Patient denying any other significant discomfort. Patient is maintaining sinus rhythm. Intermittent sinus tachycardia noted. No further episodes of polymorphic VT or other VT noted but patient continues with frequent ventricular ectopy. Review of systems: Rest review of systems negative. Medications: Medications have been reviewed. Reason For Visit: COPD EXACERBATION, CHF Physical Exam Vital Signs: Temp Pulse Resp BP Pulse Ox 99.3 F 92 29 H 136/75 H 98 10/07/17 12:00 10/07/17 13:27 10/07/17 15:00 10/07/17 13:06 10/07/17 13:06 Intake & Output 10/06/17 10/07/17 10/08/17 06:59 06:59 06:59 Intake Total 863 448 720 Output Total 1740 2270 1475 Balance -877 -1822 -755 Weight 71.5 kg 68.3 kg Exam: GENERAL: well-nourished and in no acute distress. Alert and oriented x3 HEAD: Atraumatic, normocephalic. EYES: Pupils equal round and reactive to light, extraocular movements intact, sclera anicteric, conjunctiva are normal. ENT: TMs normal, nares patent, oropharynx clear without exudates. Moist mucous membranes. No oral ulcerations or bleeding gums noted NECK: supple without lymphadenopathy. Trachea is central. No cervical or axillary lymphadenopathy noted. Carotids are 2+, JVD WNL LUNGS: Respiration seems nonlabored, no significant accessory muscle action noted. Breath sounds clear to auscultation bilaterally and equal noted. No wheezes rales or rhonchi noted. No significant dullness noted on percussion. CHEST: Palpation of the chest wall shows no significant chest wall tenderness. No other significant abnormalities noted. 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 ABDOMEN: Soft, no significant tenderness appreciated, normoactive bowel sounds. No guarding, no rebound. No rigidity noted . No masses appreciated. EXTREMITIES: Pedal pulses are 1-2+, no calf tenderness noted. No clubbing or cyanosis. 1+ pedal edema noted NEUROLOGICAL: Focused neurological exam showed no significant neurologic deficit. Normal speech, no focal weakness appreciated. PSYCH: Normal mood, normal affect. Judgment and insight within normal limits. SKIN: No significant ecchymosis, skin is noted to be warm. MUSCULOSKELETAL EXAM: No significant acute joint swelling noted. Results Laboratory Results: 10/07/17 04:24 10/07/17 04:24 10/06/17 10/07/17 10/07/17 05:10 04:24 04:24 WBC 14.3 H RBC 3.68 L Hgb 10.2 L Hct 31.2 L MCV 85 MCH 27.8 MCHC 32.7 RDW 16.1 H Plt Count 585 H Seg Neutrophils % 87.2 H Lymphocytes % 5.7 L Monocytes % 6.9 Eosinophils % 0.0 Basophils % 0.2 Absolute Neutrophils 12.4 H Absolute Lymphocytes 0.8 Absolute Monocytes 1.0 Absolute Eosinophils 0.0 Absolute Basophils 0.0 Sodium 135.9 L Potassium 4.1 Chloride 93 L Carbon Dioxide 35 H Anion Gap 8 BUN 26 H Creatinine 0.81 Est GFR ( Amer) > 60 Est GFR (Non-Af Amer) > 60 Glucose 246 H Calcium 8.9 Magnesium 2.4 H Free T4 2.11 Free T3 pg/mL 3.87 10/05/17 17:45 Tracheal Aspirate Gram Stain - Final 10/05/17 17:45 Tracheal Aspirate Sputum Culture - Final NORMAL JW 10/04/17 10/05/17 10/06/17 21:57 03:50 05:10 Creatine Kinase 79 CK-MB (CK-2) 4.04 Troponin I 0.478 0.453 10/06/17 05:10 Creatine Kinase CK-MB (CK-2) 1.16 Troponin I 0.122 EKG Comments: Telemetry strip shows sinus rhythm and mild intermittent sinus tachycardia. Frequent VPCs noted Impressions: KUB X-Ray 10/04/17 13:44 IMPRESSION: NG tube overlying stomach. Chest X-Ray 10/05/17 05:00 IMPRESSION: No significant change. Chest/Abdomen CTA 10/07/17 09:55 IMPRESSION: No CT angio evidence of acute pulmonary emboli. Small bilateral pleural effusions with mild lung parenchymal ground-glass opacities from alveolar edema Bibasilar atelectasis Assessment & Plan - Diagnosis (1) V-tach Is this a current diagnosis for this admission?: Yes (2) Mitral regurgitation Qualifiers: Cardiac valve disease etiology: etiology unspecified Qualified Code(s): I34.0 - Nonrheumatic mitral (valve) insufficiency Is this a current diagnosis for this admission?: Yes (3) CHF (congestive heart failure) Qualifiers: Heart failure type: diastolic Heart failure chronicity: acute Qualified Code(s): I50.31 - Acute diastolic (congestive) heart failure Is this a current diagnosis for this admission?: Yes (4) Acute respiratory failure with hypoxia Is this a current diagnosis for this admission?: Yes (5) Diabetes Qualifiers: Diabetes mellitus type: type 2 Diabetes mellitus prison insulin use: with prison use Diabetes mellitus complication status: with unspecified complications Qualified Code(s): E11.8 - Type 2 diabetes mellitus with unspecified complications; Z79.4 - 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 (current) use of insulin; Z79.4 - [facility] (current) use of insulin; Z79.4 - 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 (current) 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 There were 2 nonsustained episodes. Patient had received Levaquin intravenously about 12 hours before. Patient has positive troponin I there is possibility that this could be ischemic. 2D echocardiogram obtained previously was reviewed. It does show probable apical hypokinesia and also moderate mitral regurgitation. At this point will recommend optimization of medical management and referral for heart catheterization. In this regard I have talked with the business support coordinator at [facility] and she was accepted for transfer. Discharge summary dictated. Mitral regurgitation: Moderate in severity. CHF: Acute, diastolic, exact etiology not clear. Possibly related to ischemia, volume overload, COPD exacerbation etc. Agree with diuretic therapy. Acute respiratory failure with hypoxemia: Patient just got extubated today. Continue with oxygen supplementation. Diabetes: Recommend maintaining good glycemic control but avoid any hyper or hypoglycemia. Non-STEMI: Patient has positive troponin I in this range. There is no significant EKG changes except for minor nonspecific T-wave inversion but patient did have chest discomfort previously. Tobacco abuse: Patient has been advised to quit smoking. COPD: Patient seems to have significant COPD. Agree with concurrent management by infusion nurse. Patient can follow-up with me. - Time Time with patient: Greater than 35 minutes - CODE STATUS was discussed, patient remains full code. Multiple medical problems were addressed. More than 50% of the time spent coordinating care, discussing management plans with involved caregivers. Management plans discussed with involved personnels. Medical decision making was of moderate to high complexity, patient's has multiple comorbidities. Medications reviewed and adjusted accordingly: Yes
[2017-10-08] MEDS ORDERED: SERTRALINE HCL 50 MG TABLET PO SCH (10:00)
== END 2017-10-07 16:48 | disposition short-term general hospital (02) | DRG 208 ==
LOC: ER 13:25 → EH 14:54 → ICU 16:55
PROVIDERS: ADMIT Internal Medicine; ATTEND Internal Medicine
PROC: 5A1945Z Respiratory Ventilation, 24-96 Consecutive Hours (ICD-10-PCS; principal; 2017-10-04)
PROC: 0BH17EZ Insertion of Endotracheal Airway into Trachea, Via Natural or Artificial Opening (ICD-10-PCS; 2017-10-04)
PROC: 3E0F73Z Introduction of Anti-inflammatory into Respiratory Tract, Via Natural or Artificial Opening (ICD-10-PCS; 2017-10-04)
PROC: 5A09357 Assistance with Respiratory Ventilation, Less than 24 Consecutive Hours, Continuous Positive Airway Pressure (ICD-10-PCS; 2017-10-06)
DX: J96.01 Acute respiratory failure with hypoxia (principal); I50.31 Acute diastolic (congestive) heart failure; I21.A1 Myocardial infarction type 2; J44.1 Chronic obstructive pulmonary disease with (acute) exacerbation; I47.2 Ventricular tachycardia; J45.51 Severe persistent asthma with (acute) exacerbation; I11.0 Hypertensive heart disease with heart failure; Z78.1 Physical restraint status; I34.0 Nonrheumatic mitral (valve) insufficiency; E11.8 Type 2 diabetes mellitus with unspecified complications; F17.210 Nicotine dependence, cigarettes, uncomplicated; F32.9 Major depressive disorder, single episode, unspecified; I45.81 Long QT syndrome; I27.20 Pulmonary hypertension, unspecified; L29.9 Pruritus, unspecified; Z79.4 Long term (current) use of insulin; Z79.899 Other long term (current) drug therapy; Z88.0 Allergy status to penicillin; Z91.010 Allergy to peanuts; Z81.1 Family history of alcohol abuse and dependence; Z83.6 Family history of other diseases of the respiratory system; Z82.49 Family history of ischemic heart disease and other diseases of the circulatory system
CPT/HCPCS: 36415; 71045; 71275; 74018; 80048; 80053; 80061; 82550; 82553; 82803; 82962; 83036; 83605; 83735; 83880; 84439; 84443; 84478; 84481; 84484; 85025; 85027; 87040; 87070; 87205; 93005; 93010; 93306; 94002; 94003; 94640; 99291; 99292; J0330; J1200; J1650; J1652; J1815; J1940; J1956; J2704; J2920; J3490; J7620; S0164